=== PATIENT | male | born 1995 | race Caucasian/White ===

== ENCOUNTER 2018-01-22 23:12 | Inpatient (IN) ==
[2018-01-22] MEDS ORDERED: fentaNYL Citrate Inj 100 MCG/2 ML Ampul ONE ×2 (23:20→23:26)
[2018-01-22] MEDS ORDERED: Propofol 1000 mg/100 ml Inj 1,000 MG/100 ML BOTTLE ONE (23:20)
[2018-01-22 23:36] LABS: Baso # (Auto) 0.1 th/mm3 (0.0-0.2); Baso % (Auto) 0.3 % (0.0-2.0); Eos # (Auto) 0.6 th/mm3 (0.0-0.4); Eos % (Auto) 2.1 % (0.0-4.0); Hematocrit 50.7 % (39.0-51.0); Hemoglobin 17.3 gm/dL (13.0-17.0); Lymph # (Auto) 5.3 th/mm3 (1.0-4.8); Lymph % (Auto) 18.8 % (9.0-44.0); Mean Corpuscular HGB Conc 34.2 % (32.0-36.0); Mean Corpuscular Hemoglobin 30.5 pg (27.0-34.0); Mean Corpuscular Volume 89.3 fL (80.0-100.0); Mean Platelet Volume 9.4 fL (7.0-11.0); Mono # (Auto) 2.3 th/mm3 (0.0-0.9); Mono % (Auto) 8.2 % (0.0-8.0); Neut # (Auto) 19.7 th/mm3 (1.8-7.7); Neut % (Auto) 70.6 % (16.0-70.0); Platelet Count 275 th/mm3 (150-450); Red Blood Count 5.68 mil/mm3 (4.50-5.90); White Blood Count 27.9 th/mm3 (4.0-11.0)
[2018-01-22 23:50] LABS: Anion Gap 14 meq/L (5-15); Blood Urea Nitrogen 14 mg/dL (7-18); Carbon Dioxide 16.5 meq/L (21.0-32.0); Chloride 111 meq/L (98-107); Glomerular Filtration Rate 46 mL/min (>89); Glucose,Random 201 mg/dL (74-106); Potassium 3.7 meq/L (3.5-5.1); Sodium 141 meq/L (136-145)
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
[2018-01-22 23:55] LABS: INR 1.1 Ratio; Prothrombin Time 10.8 sec (9.8-11.6)
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
[2018-01-23] MEDS ORDERED: Esmolol Bolus Inj 100 MG/10 ML Vial IV.PUSH ONE (00:01)
--- NOTE | 2018-01-23 00:03 | ED ---
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 Discharge Assessment Last Done: 01/23/18 00:30 Status ED Status: Left Department Discharge Information Discharge Date/Time: 01/23/18 00:31
[2018-01-23 00:06] LABS: Eosinophils 2 % (0-4); Lymphocytes 25 % (9-44); Monocytes 9 % (0-8)
[2018-01-23 00:07] LABS: Platelet Estimate Normal (Normal); Platelet Morphology Normal (Normal); Tear Drop Cells 1+
[2018-01-23] MEDS ORDERED: Midazolam Inj 5 MG/ML 1 ML Vial ONE (00:07)
[2018-01-23 00:08] LABS: Spherocytes Occ
[2018-01-23] MEDS ORDERED: fentaNYL Citrate Inj 100 MCG/2 ML Ampul ONE ×3 (00:08→10:39)
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
[2018-01-23 00:36] LABS: ABG PCO2 43 mmHg (38-42); ABG PO2 342 mmHg (61-120)
[2018-01-23] MEDS ORDERED: Magnesium Sulfate Inj 2 GM in Sodium Chlor 0.9% Inj 96 ML IV.SIG PRN (00:39)
[2018-01-23] MEDS ORDERED: Magnesium Oxide 400 MG Tablet PO PRN (00:39)
[2018-01-23] MEDS ORDERED: Potassium Chloride 25 MEQ Effervescent Tablet PO PRN (00:39)
[2018-01-23] MEDS ORDERED: Magnesium Sulfate Inj 4 GM in Sodium Chlor 0.9% Inj 92 ML IV.SIG PRN (00:39)
[2018-01-23] MEDS ORDERED: Potassium Phosphate 500 MG Soluble Tablet PO PRN ×2 (00:39)
[2018-01-23] MEDS ORDERED: Potassium Chlor 40 mEq Premix 40 MEQ/100 ML PIGGYBACK IV.SIG PRN ×2 (00:39)
[2018-01-23] MEDS ORDERED: Potassium Chlor 20 mEq Premix 20 MEQ/100 ML PIGGYBACK IV.SIG PRN (00:39)
[2018-01-23] MEDS ORDERED: Sodium Phosphate Inj 30 MMOL in Sodium Chlor 0.9% Inj 250 ML IV.SIG PRN (00:39)
[2018-01-23] MEDS ORDERED: Potassium Phosphate Inj 30 MMOL in Sodium Chlor 0.9% Inj 250 ML IV.SIG PRN (00:39)
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
[2018-01-23] MEDS ORDERED: Heparin - SQ 10,000 UNITS/ML Vial ONE ×2 (01:07→11:21)
[2018-01-23] MEDS ORDERED: Sodium Bicarbonate 8.4% Inj 50 MEQ/50 ML Syringe IV.CONT ONE (01:16)
[2018-01-23] MEDS ORDERED: Electrolytes R/Dextrose 5% Inj 1,000 ML IV.CONT ONE (01:16)
[2018-01-23] MEDS ORDERED: Propofol Inj 500 MG/50 ML Vial ONE ×2 (01:51→11:18)
[2018-01-23 02:25] LABS: ABG Base Excess -9.8 mmol/L (-2-2); ABG PCO2 35 mmHg (38-42); ABG PO2 209 mmHG (61-120)
[2018-01-23] MEDS ORDERED: Sodium Bicarbonate 8.4% Inj 50 MEQ/50 ML Syringe ONE (02:28)
[2018-01-23] MEDS ORDERED: Albumin Human 5% Inj 500 ML IV.SIG ONE (03:08)
[2018-01-23] MEDS ORDERED: Sod Chloride 0.9% Inj 1,000 ML IV.SIG SCH (03:15)
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
[2018-01-23] MEDS ORDERED: Chlorhexidine Gluconate 2% 1 Pack (2 Cloths) TOPICAL PRN (04:00)
[2018-01-23] MEDS ORDERED: fentaNYL 10 mcg/mL Premix Drip 2,500 MCG/250 ML BAG IV.SIG PRN (04:18)
[2018-01-23 04:27] LABS: ABG Base Excess -5.4 mmol/L (-2-2); ABG PCO2 39 mmHg (38-42); ABG PO2 163 mmHg (61-120)
[2018-01-23 04:42] LABS: Baso % (Auto) 0.1 % (0.0-2.0); Eos % (Auto) 0.2 % (0.0-4.0); Hematocrit 42.8 % (39.0-51.0); Hemoglobin 14.3 gm/dL (13.0-17.0); Lymph # (Auto) 1.7 th/mm3 (1.0-4.8); Lymph % (Auto) 6.3 % (9.0-44.0); Mean Corpuscular HGB Conc 33.3 % (32.0-36.0); Mean Corpuscular Hemoglobin 30.1 pg (27.0-34.0); Mean Corpuscular Volume 90.5 fL (80.0-100.0); Mean Platelet Volume 9.4 fL (7.0-11.0); Mono # (Auto) 3.7 th/mm3 (0.0-0.9); Mono % (Auto) 13.8 % (0.0-8.0); Neut # (Auto) 21.4 th/mm3 (1.8-7.7); Neut % (Auto) 79.6 % (16.0-70.0); Platelet Count 208 th/mm3 (150-450); Red Blood Count 4.73 mil/mm3 (4.50-5.90); White Blood Count 26.9 th/mm3 (4.0-11.0)
[2018-01-23] MEDS: ceFAZolin 2 GM Premix Inj 2 GM/50 ML PIGGYBACK IV.SIG SCH ×3 (04:51→13:18)
[2018-01-23 04:54] LABS: INR 1.1 Ratio; Prothrombin Time 11.4 sec (9.8-11.6)
[2018-01-23 05:07] LABS: Calcium 7.2 mg/dL (8.5-10.1); Carbon Dioxide 20.8 meq/L (21.0-32.0); Potassium 4.7 meq/L (3.5-5.1)
[2018-01-23 05:24] LABS: Total Protein 5.5 g/dL (6.4-8.2)
[2018-01-23 05:48] LABS: Eosinophils 1 % (0-4); Lymphocytes 7 % (9-44); Metamyelocytes 1 % (0-1); Monocytes 10 % (0-8); Platelet Estimate Normal (Normal); Platelet Morphology Normal (Normal); Spherocytes 1+
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
[2018-01-23] MEDS: Chlorhexidine Gluconate 2% 1 Pack (2 Cloths) TOPICAL SCH (06:30)
[2018-01-23] MEDS: Oral Hygiene Kit OROPHARYNG SCH ×3 (06:30→17:08)
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
[2018-01-23] MEDS: Esmolol 2,500 mg/250 mL Premix 2,500 MG/250 ML BAG IV.CONT PRN ×3 (06:54→18:10)
[2018-01-23] MEDS: Sod Chloride 0.9% Inj 1,000 ML IV.CONT SCH ×2 (07:57→10:04)
[2018-01-23] MEDS: Chlorhexidine 0.12% Oral Kit 15 ML UDC OROPHARYNG SCH ×2 (07:58→20:19)
[2018-01-23] MEDS: Propofol 1000 mg/100 ml Inj 1,000 MG/100 ML BOTTLE IV.CONT PRN ×5 (07:59→23:45)
[2018-01-23] MEDS ORDERED: Phenylephrine/NS 1000 MCG/10ML Syringe IV.PUSH ONE (08:00)
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
[2018-01-23] MEDS ORDERED: Famotidine 20 MG Tablet PO SCH (09:00)
[2018-01-23] MEDS ORDERED: Heparin 10,000 UNITS/10 ML Vial (for IV use) ONE ×2 (09:49→11:21)
[2018-01-23] MEDS ORDERED: Protamine Sulfate Inj 50 MG/5 ML Vial ONE (09:49)
[2018-01-23] MEDS ORDERED: Heparin/NS PF Inj 500 ML ONE (09:50)
[2018-01-23] MEDS ORDERED: Post-op Orders (for Pharmacy) OTHER STA (09:55)
--- NOTE | 2018-01-23 10:01 | P.OP ---
- Preoperative Diagnosis (1) Open fracture of shaft of left femur Date of procedure: 01/23/18 Procedure: Irrigation and debridement of left femur fracture, intramedullary nail fixation left femur Anesthesia: GETA Surgeon: Saurav Oh MD Stock Lifter: IVAN Garcia PA-C The surgical procedure was assisted by my physician paraprofessional education assistant. My P.A. presence was necessary throughout this case for the manipulation and positioning of the surgical extremity. My P.A. was assisting me throughout the duration of this procedure. The skill set of a physician paraprofessional education assistant was medically necessary to complete this procedure. During the surgical case the surgical services assistant was working at the back table and the physician paraprofessional education assistant was directly assisting me. Operation and Findings: Implants used: 11 mm x 380 mm Synthes femoral nail Plan of activity: 50% weightbearing Patient was seen and evaluated preoperatively. He is intubated and sedated in the intensive care unit.. The patient has significant hip pain from open femur shaft fracture. The risk and benefits of surgery were discussed in depth with the patients family to include bleeding, infection, nonunion, malunion, painful hardware, as well as medical competitions including blood clots, stroke , heart attack, and . Informed consent was obtained. Operative site was marked. Patient was brought to the operating room and placed on fracture table. IV sedation was administered by anesthesiologist. Timeout procedure was performed. Hip and leg were prepped with alcohol followed by DuraPrep and draped in the usual sterile fashion. IV antibiotics were given prior to incision. Procedure began with irrigation and debridement of the fracture. The traumatic laceration was extended proximally and distally. The fracture was exposed. Vastus lateralis was elevated. Curettes were used to debride bone. Overall the wound appeared to be clean. 3 L of sterile saline was used to copiously irrigate soft tissue and bone. Next, attention was turned towards reduction of fracture. Traction was applied. The leg was manipulated to achieve reduction. Excellent reduction was achieved. Fluoroscopy was used to confirm reduction. A two inch incision was made proximal to the trochanter. Subcutaneous tissue was dissected bluntly. Guidepin was placed into the piriformis fossa and advanced into the femoral canal. Fluoroscopy confirmed appropriate guidepin placement. A opening reamer was placed over the guidepin. A long ball tipped guide pin was now placed down the femoral canal into the center of the distal femur. The nail length was now measured. Fluoroscopy confirmed appropriate guidepin placement. Flexible reamers were now passed over the guidepin to ream the intramedullary canal. The Synthes nail was attached to the insertion handle. Nail was now placed over the guidepin into the femoral canal. Fluoroscopy confirmed appropriate nail placement. Small incisions were made over the lateral thigh for the proximal interlocking screws. Cannulas were placed through the insertion handle down to the femur. The screw holes were predrilled and screw lengths were measured. Appropriate length screws were now placed. Traction was released and compression was applied. Next, using perfect havasupai technique two distal interlocking screws were placed. Screw holes were predrilled and screw lengths were measured. Final fluoroscopy revealed well aligned fracture with well-placed hardware. Incision was closed with 3-0 PDS and soniya. Sterile dressings were applied. Patient was awakened and transferred to recovery room.
--- NOTE | 2018-01-23 11:11 | XR ---
EXAM DATE: 01/23/2018 11:05 AM EDT AGE/SEX: 89 years / Male INDICATIONS: ORIF left femur fracture. CLINICAL DATA: This is the patient's subsequent encounter. Patient reports that signs and symptoms h ave been present for 2 days and indicates a pain score of Nonresponsive. MEDICAL/SURGICAL HISTORY: Non-responsive. Non-responsive. COMPARISON: [facility] [place], [place] FEMUR LEFT W CONTRAST, 01/22/2018. . FINDINGS: A medullary sari fixation screws have been placed in the left femur status post ORIF. The femur is wel l aligned. CONCLUSION: Status post ORIF of left mid femur fracture with hardware in good position. Electronically signed by: Derrick Morrell MD 01/23/2018 11:10 AM EDT
[2018-01-23] MEDS ORDERED: Iohexol 300 MG/ML 50 ML Vial (for Rad Diag) IVCONTRAST ONE (11:28)
--- NOTE | 2018-01-23 11:55 | P.OP ---
- Preoperative Diagnosis (1) Aortic transection - Postoperative Diagnosis (1) Aortic transection Date of procedure: 01/23/18 Procedure: 1. TEVAR involving L SCA 2. IVUS 3. R WELT SEWER Perclose 4. L WELT SEWER Angioseal Implants: 1. Valiant TEVAR ([id number]) 2. L WELT SEWER Angioseal Anesthesia: GETA Surgeon: Derrick Montes De Oca MD Estimated blood loss (mL): 50 IV fluids (mL): 1,300 Urine output (mL): 200 Pathology: none sent Operation and Findings: successful TEVAR with intentional coverage of L SCA + Doppler signals B LE after TEVAR
--- NOTE | 2018-01-23 13:37 | XR ---
EXAM DATE: 01/23/2018 1:25 PM EDT AGE/SEX: 89 years / Male INDICATIONS: Evaluate lung status. Possible aneurysm. CLINICAL DATA: This is the patient's subsequent encounter. Patient reports that signs and symptoms h ave been present for 2 days and indicates a pain score of Nonresponsive. MEDICAL/SURGICAL HISTORY: Non-responsive. Non-responsive. COMPARISON: [facility] [place], CT CHEST W CONTRAST, 01/22/2018. . FINDINGS: The cardiac silhouette is normal in transverse diameter. Support lines and tubes are in satisfactory position. Aortic stent graft is present. There is left lower lobe atelectasis versus pneumonia. A sma ll left sided effusion is present. There is no evidence of pneumothorax. CONCLUSION: Left lower lobe atelectasis versus pneumonia with small left effusion Electronically signed by: Kishor Soler MD 01/23/2018 1:36 PM EDT
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
[2018-01-23] MEDS: Famotidine PF Inj 20 MG/2 ML Vial IV.PUSH SCH ×2 (13:54→20:18)
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
[2018-01-23 16:28] LABS: Baso % (Auto) 0.3 % (0.0-2.0); Eos # (Auto) 0.1 th/mm3 (0.0-0.4); Eos % (Auto) 0.6 % (0.0-4.0); Hematocrit 34.3 % (39.0-51.0); Hemoglobin 11.2 gm/dL (13.0-17.0); Lymph % (Auto) 12.3 % (9.0-44.0); Mean Corpuscular HGB Conc 32.7 % (32.0-36.0); Mean Corpuscular Volume 91.6 fL (80.0-100.0); Mean Platelet Volume 9.3 fL (7.0-11.0); Mono # (Auto) 2.3 th/mm3 (0.0-0.9); Mono % (Auto) 14.7 % (0.0-8.0); Neut # (Auto) 11.5 th/mm3 (1.8-7.7); Neut % (Auto) 72.1 % (16.0-70.0); Platelet Count 150 th/mm3 (150-450); Red Blood Count 3.74 mil/mm3 (4.50-5.90); Red Cell Distribution Width 13.4 % (11.6-17.2); White Blood Count 15.9 th/mm3 (4.0-11.0)
[2018-01-23 17:07] LABS: Calcium 6.6 mg/dL (8.5-10.1); Potassium 4.1 meq/L (3.5-5.1)
[2018-01-23] MEDS: Metoprolol Inj 5 MG/5 ML Vial IV.PUSH SCH ×2 (17:07→22:12)
[2018-01-23] MEDS: ceFAZolin Inj 2,000 MG in Sodium Chlor 0.9% Inj 80 ML IV.SIG SCH (17:10)
[2018-01-23 17:23] LABS: ABG Base Excess -2.7 mmol/L (-2-2); ABG PCO2 47 mmHg (38-42); ABG PO2 93 mmHg (61-120)
[2018-01-23 17:32] LABS: Total Protein 4.9 g/dL (6.4-8.2)
[2018-01-23 17:56] LABS: Lymphocytes 8 % (9-44); Metamyelocytes 4 % (0-1); Monocytes 2 % (0-8)
[2018-01-23 17:57] LABS: Platelet Morphology Normal (Normal)
[2018-01-23] MEDS: fentaNYL 10 mcg/mL Premix Drip 2,500 MCG/250 ML BAG IV.SIG PRN (18:35)
[2018-01-23 19:36] LABS: Bacteria,Urine Rare /hpf; Bilirubin,Urine Negative (Negative); Clarity,Urine Clear (Clear); Color,Urine Yellow (Yellw/Straw); Glucose,Urine (UA) Negative (Negative); Leukocyte Esterase,Urine Negative (Negative); Nitrite,Urine Negative (Negative); Specific Gravity,Urine 1.049 (1.002-1.035)
[2018-01-23 19:37] LABS: Amphetamine Screen,Urine Neg (Neg); Barbiturate Screen,Urine Neg (Neg); Cannabinoid Screen,Urine Pos (Neg); Cocaine Screen,Urine Neg (Neg)
[2018-01-23 19:56] LABS: Opiate Screen,Urine Neg (Neg)
[2018-01-23] MEDS: Gentamicin/NS 80 mg Premix 100 ML IV.SIG SCH (20:18)
[2018-01-24] MEDS: Oral Hygiene Kit OROPHARYNG SCH ×5 (00:20→16:57)
[2018-01-24] MEDS: ceFAZolin Inj 2,000 MG in Sodium Chlor 0.9% Inj 80 ML IV.SIG SCH ×2 (00:34→08:40)
[2018-01-24] MEDS: Metoprolol Inj 5 MG/5 ML Vial IV.PUSH SCH ×4 (03:34→21:43)
[2018-01-24] MEDS: Gentamicin/NS 80 mg Premix 100 ML IV.SIG SCH ×3 (03:34→20:19)
[2018-01-24] MEDS: Chlorhexidine Gluconate 2% 1 Pack (2 Cloths) TOPICAL SCH (03:34)
[2018-01-24] MEDS: Propofol 1000 mg/100 ml Inj 1,000 MG/100 ML BOTTLE IV.CONT PRN ×6 (03:35→23:42)
[2018-01-24 04:52] LABS: Baso % (Auto) 0.2 % (0.0-2.0); Eos # (Auto) 0.2 th/mm3 (0.0-0.4); Eos % (Auto) 1.2 % (0.0-4.0); Hematocrit 30.1 % (39.0-51.0); Hemoglobin 10.3 gm/dL (13.0-17.0); Lymph # (Auto) 1.8 th/mm3 (1.0-4.8); Lymph % (Auto) 11.8 % (9.0-44.0); Mean Corpuscular HGB Conc 34.3 % (32.0-36.0); Mean Corpuscular Hemoglobin 30.6 pg (27.0-34.0); Mean Platelet Volume 9.1 fL (7.0-11.0); Mono # (Auto) 1.9 th/mm3 (0.0-0.9); Mono % (Auto) 12.7 % (0.0-8.0); Neut # (Auto) 11.2 th/mm3 (1.8-7.7); Neut % (Auto) 74.1 % (16.0-70.0); Platelet Count 114 th/mm3 (150-450); Red Blood Count 3.38 mil/mm3 (4.50-5.90); Red Cell Distribution Width 13.4 % (11.6-17.2); White Blood Count 15.1 th/mm3 (4.0-11.0)
[2018-01-24 05:27] LABS: Alanine Aminotransferase 44 U/L (12-78); Albumin 2.4 g/dL (3.4-5.0); Alkaline Phosphatase 58 U/L (45-117); Anion Gap 7 meq/L (5-15); Aspartate Aminotransferase 153 U/L (15-37); Blood Urea Nitrogen 12 mg/dL (7-18); Calcium 6.7 mg/dL (8.5-10.1); Carbon Dioxide 25.6 meq/L (21.0-32.0); Chloride 112 meq/L (98-107); Glomerular Filtration Rate Greater Than 89 mL/min (>89); Glucose,Random 129 mg/dL (74-106); Sodium 145 meq/L (136-145); Total Protein 4.9 g/dL (6.4-8.2)
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
[2018-01-24 06:05] LABS: ABG PCO2 43 mmHg (38-42); ABG PO2 112 mmHg (61-120)
--- NOTE | 2018-01-24 06:59 | P.PNOP ---
Subjective Interval history: POD 1 s/p IMN left femur intubated/sedated Physical Exam Vital signs: Vital Signs 01/23/18 08:21 01/23/18 08:46 01/23/18 13:56 Temperature 99.7 F H Pulse Rate 82 92 H Respiratory Rate 16 16 Blood Pressure 150/56 H Pulse Oximetry 100 100 100 01/23/18 15:56 01/23/18 16:00 01/23/18 16:51 Temperature 100.8 F H 100.8 F H Pulse Rate 92 H 92 H 97 H Respiratory Rate 16 16 16 Blood Pressure 142/54 H 142/54 H Pulse Oximetry 100 100 99 01/23/18 17:56 01/23/18 20:00 01/23/18 20:17 Temperature 100.8 F H 100.6 F H Pulse Rate 98 H 97 H 97 H Respiratory Rate 16 16 17 Blood Pressure 124/54 L 127/57 L Pulse Oximetry 98 99 98 01/24/18 00:00 01/24/18 01:26 01/24/18 04:00 Temperature 100.2 F H 100.9 F H Pulse Rate 96 H 95 H Respiratory Rate 16 16 16 Blood Pressure 136/66 136/48 L Pulse Oximetry 98 98 99 01/24/18 05:01 Temperature Pulse Rate 101 H Respiratory Rate 16 Blood Pressure Pulse Oximetry 98 Intake & Output 01/23/18 01/23/18 01/24/18 06:59 18:59 06:59 Intake Total 2400 / 2400 3950 / 3950 2600 / 2600 Output Total 790 / 790 1350 / 1350 1400 / 1400 Balance 1610 / 1610 2600 / 2600 1200 / 1200 Weight 122.7 kg 132.7 kg Intake: IV 2650 / 2650 2600 / 2600 Brevibloc 2,500 mg/NS 250 mL 500 / 500 Premix 2,500 mg In 250 ml @ 50 MCG/KG/MIN 36.81 mls/hr IV.CONT TITRATE PRN Rx#:[id number] Diprivan 1000 mg/100 ml Inj 1, 200 / 200 300 / 300 000 mg In 100 ml @ 5 MCG/KG/MIN 3.681 mls/hr IV.CONT TITRATE PRN Rx#:[id number] Alburx 5% Inj 500 ML @ 250 mls/ 500 / 500 hr IV.SIG ONCE ONE Rx#:[id number] Gentamicin/NS 80 mg Premix 100 200 / 200 ML @ 200 mls/hr IV.SIG Q8H [facility] Rx#:[id number] LR 1000 mL Inj 1,000 ML @ 125 1000 / 1000 2000 / 2000 mls/hr IV.SIG .Q8H [facility] Rx#: [id number] Ancef 2 GM Premix Inj 2 gm In 100 / 100 50 ml @ 100 mls/hr IV.SIG Q8H [facility] Rx#:[id number] Ancef Inj 2,000 MG In NS Inj 80 100 / 100 100 / 100 ML @ 200 mls/hr IV.SIG Q8H [facility] Rx#:[id number] Anesthesia Amount 2400 / 2400 1300 / 1300 Output: Estimated Blood Loss 200 / 200 125 / 125 Urine Amount (Catheter) 430 / 430 800 / 800 550 / 550 Indwelling Urethral Catheter 430 / 430 800 / 800 550 / 550 Gastric Drainage 250 / 250 Orogastric Tube 250 / 250 Wound Vac Amount 160 / 160 425 / 425 600 / 600 Abdomen 160 / 160 425 / 425 600 / 600 Other: Mode Setting Abdomen Continuous Continuous Continuous # Bowel Movements 0 Weight On Admission 122.7 kg Narrative: LLE: dressings clean and dry. inact. compartments soft. - Urinary Catheter Management Indwelling Urethral Catheter Cath placed during this visit: no Results - Labs CBC & Chem 7: 01/24/18 04:36 01/24/18 04:36 Laboratory Results - last 24 hr 01/22/18 01/23/18 01/23/18 23:18 15:46 15:46 WBC 15.9 H RBC 3.74 L Hgb 11.2 L D Hct 34.3 L MCV 91.6 MCH 30.0 MCHC 32.7 RDW 13.4 Plt Count 150 MPV 9.3 Prelim Diff (Auto) Slide review pending Neut % (Auto) 72.1 H Lymph % (Auto) 12.3 [place] % (Auto) 14.7 H Eos % (Auto) 0.6 Baso % (Auto) 0.3 Neut # (Auto) 11.5 H Lymph # (Auto) 2.0 [place] # (Auto) 2.3 H Eos # (Auto) 0.1 Baso # (Auto) 0.0 WBC Differential Manual diff final Seg Neuts % (Manual) 76 H Band Neuts % (Manual) 10 H Lymphocytes % (Manual) 8 L Monocytes % (Manual) 2 Metamyelocytes % (Man) 4 H Abs Neuts (Manual) 14.3 H Differential Comment . Platelet Estimate Low L Platelet Morphology Normal Puncture Site Patient Temperature O2 Saturation ABG pH ABG pCO2 ABG pO2 ABG HCO3 ABG O2 Content ABG Base Excess ABG Methemoglobin Hemoglobin Carboxyhemoglobin O2 Delivery Device Vent Setting Inspired O2 Critical Value Sodium 143 Potassium 4.1 Chloride 112 H Carbon Dioxide 25.0 Anion Gap 6 BUN 15 Creatinine 1.00 Estimated GFR 64 L Random Glucose 124 H Calcium 6.6 L* Prot Corrected Calcium 7.7 L Total Bilirubin AST ALT Alkaline Phosphatase Total Protein 4.9 L D Albumin Urine Color Urine Clarity Urine pH Ur Specific [place] Urine Protein Urine Glucose (UA) Urine Ketones Urine Occult Blood Urine Nitrate Urine Bilirubin Urine Urobilinogen Ur Leukocyte Esterase Urine RBC Urine WBC Urine Bacteria Micro UA Comment Ur Microscopic Review Urine Culture Comments Urine Opiates Screen Ur Barbiturates Screen Ur Amphetamines Screen U Benzodiazepines Scrn Urine Cocaine Screen U Cannabinoids Screen MTS Gel Crossmatch See Detail 01/23/18 01/23/18 01/23/18 17:13 18:27 18:27 WBC RBC Hgb Hct MCV MCH MCHC RDW Plt Count MPV Prelim Diff (Auto) Neut % (Auto) Lymph % (Auto) [place] % (Auto) Eos % (Auto) Baso % (Auto) Neut # (Auto) Lymph # (Auto) [place] # (Auto) Eos # (Auto) Baso # (Auto) WBC Differential Seg Neuts % (Manual) Band Neuts % (Manual) Lymphocytes % (Manual) Monocytes % (Manual) Metamyelocytes % (Man) Abs Neuts (Manual) Differential Comment Platelet Estimate Platelet Morphology Puncture Site Art line Patient Temperature 98.6 O2 Saturation 95 ABG pH 7.31 L ABG pCO2 47 H ABG pO2 93 ABG HCO3 23 ABG O2 Content 14.9 ABG Base Excess -2.7 L ABG Methemoglobin 1.3 Hemoglobin 11.0 L Carboxyhemoglobin 1.2 O2 Delivery Device Ventilator Vent Setting Prvc/ac Inspired O2 40 Critical Value No Sodium Potassium Chloride Carbon Dioxide Anion Gap BUN Creatinine Estimated GFR Random Glucose Calcium Prot Corrected Calcium Total Bilirubin AST ALT Alkaline Phosphatase Total Protein Albumin Urine Color Yellow Urine Clarity Clear Urine pH 5.0 Ur Specific [place] 1.049 H Urine Protein 30 H Urine Glucose (UA) Negative Urine Ketones Negative Urine Occult Blood Negative Urine Nitrate Negative Urine Bilirubin Negative Urine Urobilinogen Less than 2 Ur Leukocyte Esterase Negative Urine RBC 7 H Urine WBC 1 Urine Bacteria Rare H Micro UA Comment Cath-culture ind Ur Microscopic Review Not Reportable Urine Culture Comments Cath-cult indicated Urine Opiates Screen Neg Ur Barbiturates Screen Neg Ur Amphetamines Screen Neg U Benzodiazepines Scrn Pos H Urine Cocaine Screen Neg U Cannabinoids Screen Pos H MTS Gel Crossmatch 01/24/18 01/24/18 01/24/18 04:36 04:36 05:53 WBC 15.1 H RBC 3.38 L Hgb 10.3 L Hct 30.1 L MCV 89.0 MCH 30.6 MCHC 34.3 RDW 13.4 Plt Count 114 L MPV 9.1 Prelim Diff (Auto) Neut % (Auto) 74.1 H Lymph % (Auto) 11.8 [place] % (Auto) 12.7 H Eos % (Auto) 1.2 Baso % (Auto) 0.2 Neut # (Auto) 11.2 H Lymph # (Auto) 1.8 [place] # (Auto) 1.9 H Eos # (Auto) 0.2 Baso # (Auto) 0.0 WBC Differential . Seg Neuts % (Manual) Band Neuts % (Manual) Lymphocytes % (Manual) Monocytes % (Manual) Metamyelocytes % (Man) Abs Neuts (Manual) Differential Comment Auto diff final Platelet Estimate Platelet Morphology Puncture Site Art line Patient Temperature 98.6 O2 Saturation 96 ABG pH 7.31 L ABG pCO2 43 H ABG pO2 112 ABG HCO3 21 L ABG O2 Content 13.2 ABG Base Excess -4.0 L ABG Methemoglobin 1.4 Hemoglobin 9.6 L Carboxyhemoglobin 1.3 O2 Delivery Device Ventilator Vent Setting Prvc/ac 16, vt 600, Inspired O2 40 Critical Value No Sodium 145 Potassium 4.0 Chloride 112 H Carbon Dioxide 25.6 Anion Gap 7 BUN 12 Creatinine 0.97 Estimated GFR Greater than 89 Random Glucose 129 H Calcium 6.7 L* Prot Corrected Calcium 7.8 L Total Bilirubin 0.4 AST 153 H ALT 44 Alkaline Phosphatase 58 Total Protein 4.9 L Albumin 2.4 L Urine Color Urine Clarity Urine pH Ur Specific [place] Urine Protein Urine Glucose (UA) Urine Ketones Urine Occult Blood Urine Nitrate Urine Bilirubin Urine Urobilinogen Ur Leukocyte Esterase Urine RBC Urine WBC Urine Bacteria Micro UA Comment Ur Microscopic Review Urine Culture Comments Urine Opiates Screen Ur Barbiturates Screen Ur Amphetamines Screen U Benzodiazepines Scrn Urine Cocaine Screen U Cannabinoids Screen MTS Gel Crossmatch - Imaging Impressions Chest X-Ray 01/23/18 00:00 CONCLUSION: Left lower lobe atelectasis versus pneumonia with small left effusion Femur X-Ray 01/23/18 00:00 CONCLUSION: Status post ORIF of left mid femur fracture with hardware in good position. Chest X-Ray 01/24/18 00:00 CONCLUSION: Stable chest appearance. Assessment and Plan - Assessment and Plan 1) Left Femoral Shaft Fx s/p IMN - POD 1 -50%WB -dailiy dressing changes POD 2 -DVT prophylaxis -medical mgmt -ortho surgeries complete -f/u wtmadhu Santamaria or CRISTIANO in 2 weeks [employer] Prescription Drug Monitoring Database has been queried and verified prior to prescribing the controlled subsection. Patient is having significant pain caused by [] which will last more than 3 days. Trial of alternative treatment options other than prescribed opioids has not helped. I believe that it is medically necessary to treat the patients pain because it is affecting patients ability to [].
[2018-01-24] MEDS: Esmolol 2,500 mg/250 mL Premix 2,500 MG/250 ML BAG IV.CONT PRN (08:35)
[2018-01-24] MEDS: fentaNYL 10 mcg/mL Premix Drip 2,500 MCG/250 ML BAG IV.SIG PRN ×2 (08:39→22:40)
[2018-01-24] MEDS: Chlorhexidine 0.12% Oral Kit 15 ML UDC OROPHARYNG SCH ×2 (08:40→21:41)
[2018-01-24] MEDS: Famotidine PF Inj 20 MG/2 ML Vial IV.PUSH SCH ×2 (08:41→20:19)
--- NOTE | 2018-01-24 09:07 | P.PNVS ---
Subjective Post Op Day #: 1 Procedure: TEVAR Subjective/Hospital Course: sedated, intubated, still with open abd per report, INTERIANO with lightened sedation Objective Vital Signs / I&O: Vital Signs 01/23/18 13:56 01/23/18 15:56 01/23/18 16:00 Temperature 99.7 F H 100.8 F H 100.8 F H Pulse Rate 92 H 92 H 92 H Respiratory Rate 16 16 16 Blood Pressure 150/56 H 142/54 H 142/54 H Pulse Oximetry 100 100 100 01/23/18 16:51 01/23/18 17:56 01/23/18 20:00 Temperature 100.8 F H 100.6 F H Pulse Rate 97 H 98 H 97 H Respiratory Rate 16 16 16 Blood Pressure 124/54 L 127/57 L Pulse Oximetry 99 98 99 01/23/18 20:17 01/24/18 00:00 01/24/18 01:26 Temperature 100.2 F H Pulse Rate 97 H 96 H Respiratory Rate 17 16 16 Blood Pressure 136/66 Pulse Oximetry 98 98 98 01/24/18 04:00 01/24/18 05:01 01/24/18 07:55 Temperature 100.9 F H Pulse Rate 95 H 101 H Respiratory Rate 16 16 16 Blood Pressure 136/48 L Pulse Oximetry 99 98 98 Intake & Output 01/23/18 01/24/18 01/24/18 18:59 06:59 18:59 Intake Total 3950 / 3950 2700 / 2700 500 / 500 Output Total 1350 / 1350 1400 / 1400 Balance 2600 / 2600 1300 / 1300 500 / 500 Weight 132.7 kg Intake: IV 2650 / 2650 2700 / 2700 500 / 500 Brevibloc 2,500 mg/NS 250 mL 500 / 500 250 / 250 Premix 2,500 mg In 250 ml @ 50 MCG/KG/MIN 36.81 mls/hr IV.CONT TITRATE PRN Rx#:[id number] Diprivan 1000 mg/100 ml Inj 1, 200 / 200 400 / 400 000 mg In 100 ml @ 5 MCG/KG/MIN 3.681 mls/hr IV.CONT TITRATE PRN Rx#:[id number] Alburx 5% Inj 500 ML @ 250 mls/ 500 / 500 hr IV.SIG ONCE ONE Rx#:[id number] Gentamicin/NS 80 mg Premix 100 200 / 200 ML @ 200 mls/hr IV.SIG Q8H [facility] Rx#:[id number] LR 1000 mL Inj 1,000 ML @ 125 1000 / 1000 2000 / 2000 mls/hr IV.SIG .Q8H [facility] Rx#: [id number] Ancef 2 GM Premix Inj 2 gm In 100 / 100 50 ml @ 100 mls/hr IV.SIG Q8H [facility] Rx#:[id number] Ancef Inj 2,000 MG In NS Inj 80 100 / 100 100 / 100 ML @ 200 mls/hr IV.SIG Q8H [facility] Rx#:[id number] fentaNYL 10 mcg/mL Premix Drip 250 / 250 2,500 mcg In 250 ml @ 50 MCG/HR 5 mls/hr IV.SIG TITRATE PRN Rx #:[id number] Anesthesia Amount 1300 / 1300 Output: Estimated Blood Loss 125 / 125 Urine Amount (Catheter) 800 / 800 550 / 550 Indwelling Urethral Catheter 800 / 800 550 / 550 Gastric Drainage 250 / 250 Orogastric Tube 250 / 250 Wound Vac Amount 425 / 425 600 / 600 Abdomen 425 / 425 600 / 600 Other: Mode Setting Abdomen Continuous Continuous # Bowel Movements 0 Exam: resting, sedated B groin access sites ok palpable L PT and strong R pedal signals feet warm Laboratory Results - last 24 hr 01/22/18 01/23/18 01/23/18 23:18 15:46 15:46 WBC 15.9 H RBC 3.74 L Hgb 11.2 L D Hct 34.3 L MCV 91.6 MCH 30.0 MCHC 32.7 RDW 13.4 Plt Count 150 MPV 9.3 Prelim Diff (Auto) Slide review pending Neut % (Auto) 72.1 H Lymph % (Auto) 12.3 [place] % (Auto) 14.7 H Eos % (Auto) 0.6 Baso % (Auto) 0.3 Neut # (Auto) 11.5 H Lymph # (Auto) 2.0 [place] # (Auto) 2.3 H Eos # (Auto) 0.1 Baso # (Auto) 0.0 WBC Differential Manual diff final Seg Neuts % (Manual) 76 H Band Neuts % (Manual) 10 H Lymphocytes % (Manual) 8 L Monocytes % (Manual) 2 Metamyelocytes % (Man) 4 H Abs Neuts (Manual) 14.3 H Differential Comment . Platelet Estimate Low L Platelet Morphology Normal Puncture Site Patient Temperature O2 Saturation ABG pH ABG pCO2 ABG pO2 ABG HCO3 ABG O2 Content ABG Base Excess ABG Methemoglobin Hemoglobin Carboxyhemoglobin O2 Delivery Device Vent Setting Inspired O2 Critical Value Sodium 143 Potassium 4.1 Chloride 112 H Carbon Dioxide 25.0 Anion Gap 6 BUN 15 Creatinine 1.00 Estimated GFR 64 L Random Glucose 124 H Calcium 6.6 L* Prot Corrected Calcium 7.7 L Total Bilirubin AST ALT Alkaline Phosphatase Total Protein 4.9 L D Albumin Urine Color Urine Clarity Urine pH Ur Specific [place] Urine Protein Urine Glucose (UA) Urine Ketones Urine Occult Blood Urine Nitrate Urine Bilirubin Urine Urobilinogen Ur Leukocyte Esterase Urine RBC Urine WBC Urine Bacteria Micro UA Comment Ur Microscopic Review Urine Culture Comments Urine Opiates Screen Ur Barbiturates Screen Ur Amphetamines Screen U Benzodiazepines Scrn Urine Cocaine Screen U Cannabinoids Screen MTS Gel Crossmatch See Detail 01/23/18 01/23/18 01/23/18 17:13 18:27 18:27 WBC RBC Hgb Hct MCV MCH MCHC RDW Plt Count MPV Prelim Diff (Auto) Neut % (Auto) Lymph % (Auto) [place] % (Auto) Eos % (Auto) Baso % (Auto) Neut # (Auto) Lymph # (Auto) [place] # (Auto) Eos # (Auto) Baso # (Auto) WBC Differential Seg Neuts % (Manual) Band Neuts % (Manual) Lymphocytes % (Manual) Monocytes % (Manual) Metamyelocytes % (Man) Abs Neuts (Manual) Differential Comment Platelet Estimate Platelet Morphology Puncture Site Art line Patient Temperature 98.6 O2 Saturation 95 ABG pH 7.31 L ABG pCO2 47 H ABG pO2 93 ABG HCO3 23 ABG O2 Content 14.9 ABG Base Excess -2.7 L ABG Methemoglobin 1.3 Hemoglobin 11.0 L Carboxyhemoglobin 1.2 O2 Delivery Device Ventilator Vent Setting Prvc/ac Inspired O2 40 Critical Value No Sodium Potassium Chloride Carbon Dioxide Anion Gap BUN Creatinine Estimated GFR Random Glucose Calcium Prot Corrected Calcium Total Bilirubin AST ALT Alkaline Phosphatase Total Protein Albumin Urine Color Yellow Urine Clarity Clear Urine pH 5.0 Ur Specific [place] 1.049 H Urine Protein 30 H Urine Glucose (UA) Negative Urine Ketones Negative Urine Occult Blood Negative Urine Nitrate Negative Urine Bilirubin Negative Urine Urobilinogen Less than 2 Ur Leukocyte Esterase Negative Urine RBC 7 H Urine WBC 1 Urine Bacteria Rare H Micro UA Comment Cath-culture ind Ur Microscopic Review Not Reportable Urine Culture Comments Cath-cult indicated Urine Opiates Screen Neg Ur Barbiturates Screen Neg Ur Amphetamines Screen Neg U Benzodiazepines Scrn Pos H Urine Cocaine Screen Neg U Cannabinoids Screen Pos H MTS Gel Crossmatch 01/24/18 01/24/18 01/24/18 04:36 04:36 05:53 WBC 15.1 H RBC 3.38 L Hgb 10.3 L Hct 30.1 L MCV 89.0 MCH 30.6 MCHC 34.3 RDW 13.4 Plt Count 114 L MPV 9.1 Prelim Diff (Auto) Neut % (Auto) 74.1 H Lymph % (Auto) 11.8 [place] % (Auto) 12.7 H Eos % (Auto) 1.2 Baso % (Auto) 0.2 Neut # (Auto) 11.2 H Lymph # (Auto) 1.8 [place] # (Auto) 1.9 H Eos # (Auto) 0.2 Baso # (Auto) 0.0 WBC Differential . Seg Neuts % (Manual) Band Neuts % (Manual) Lymphocytes % (Manual) Monocytes % (Manual) Metamyelocytes % (Man) Abs Neuts (Manual) Differential Comment Auto diff final Platelet Estimate Platelet Morphology Puncture Site Art line Patient Temperature 98.6 O2 Saturation 96 ABG pH 7.31 L ABG pCO2 43 H ABG pO2 112 ABG HCO3 21 L ABG O2 Content 13.2 ABG Base Excess -4.0 L ABG Methemoglobin 1.4 Hemoglobin 9.6 L Carboxyhemoglobin 1.3 O2 Delivery Device Ventilator Vent Setting Prvc/ac 16, vt 600, Inspired O2 40 Critical Value No Sodium 145 Potassium 4.0 Chloride 112 H Carbon Dioxide 25.6 Anion Gap 7 BUN 12 Creatinine 0.97 Estimated GFR Greater than 89 Random Glucose 129 H Calcium 6.7 L* Prot Corrected Calcium 7.8 L Total Bilirubin 0.4 AST 153 H ALT 44 Alkaline Phosphatase 58 Total Protein 4.9 L Albumin 2.4 L Urine Color Urine Clarity Urine pH Ur Specific [place] Urine Protein Urine Glucose (UA) Urine Ketones Urine Occult Blood Urine Nitrate Urine Bilirubin Urine Urobilinogen Ur Leukocyte Esterase Urine RBC Urine WBC Urine Bacteria Micro UA Comment Ur Microscopic Review Urine Culture Comments Urine Opiates Screen Ur Barbiturates Screen Ur Amphetamines Screen U Benzodiazepines Scrn Urine Cocaine Screen U Cannabinoids Screen MTS Gel Crossmatch Assessment and Plan - Assessment (1) Aortic transection Code(s): S25.09XA - Other specified injury of thoracic aorta, initial encounter Status: Acute - Plan POD#1 s/p TEVAR for transection 1. HD stable 2. B LE perfused 3. Will need CTA in 1m which I will arrange 4. Continue to avoid L UE bp (will be falsely low). If he ultimately develops L UE claudication, will perform C-SC bypass 5. Continue pulse checks
[2018-01-24] MEDS: Enoxaparin Inj 30 MG/0.3 ML Syringe SQ SCH ×2 (10:34→22:37)
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
[2018-01-24] MEDS ORDERED: Phenylephrine/NS 1000 MCG/10ML Syringe IV.PUSH ONE (12:45)
[2018-01-24] MEDS ORDERED: Electrolytes R/Dextrose 5% Inj 1,000 ML IV.CONT ONE (12:45)
[2018-01-24 15:59] LABS: ABG PCO2 48 mmHg (38-42); ABG PO2 76 mmHg (61-120)
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
[2018-01-24] MEDS: Piperacil/Tazo 4.5 GM Premix 4.5 GM/100 ML BAG IV.SIG SCH ×2 (16:57→23:40)
[2018-01-25] MEDS: Oral Hygiene Kit OROPHARYNG SCH ×5 (00:10→23:33)
[2018-01-25] MEDS: Propofol 1000 mg/100 ml Inj 1,000 MG/100 ML BOTTLE IV.CONT PRN ×5 (03:25→23:34)
[2018-01-25] MEDS: Gentamicin/NS 80 mg Premix 100 ML IV.SIG SCH ×2 (04:01→11:10)
[2018-01-25] MEDS: Metoprolol Inj 5 MG/5 ML Vial IV.PUSH SCH ×4 (04:01→21:46)
[2018-01-25] MEDS: Chlorhexidine Gluconate 2% 1 Pack (2 Cloths) TOPICAL SCH (04:20)
[2018-01-25 05:46] LABS: ABG Base Excess -0.1 mmol/L (-2-2); ABG PCO2 45 mmHg (38-42); ABG PO2 83 mmHg (61-120)
[2018-01-25 05:49] LABS: Baso # (Auto) 0.1 th/mm3 (0.0-0.2); Baso % (Auto) 0.5 % (0.0-2.0); Eos # (Auto) 0.5 th/mm3 (0.0-0.4); Eos % (Auto) 4.7 % (0.0-4.0); Hematocrit 25.7 % (39.0-51.0); Hemoglobin 8.6 gm/dL (13.0-17.0); Lymph # (Auto) 1.5 th/mm3 (1.0-4.8); Lymph % (Auto) 13.1 % (9.0-44.0); Mean Corpuscular HGB Conc 33.6 % (32.0-36.0); Mean Corpuscular Hemoglobin 30.1 pg (27.0-34.0); Mean Corpuscular Volume 89.7 fL (80.0-100.0); Mean Platelet Volume 9.3 fL (7.0-11.0); Mono # (Auto) 1.2 th/mm3 (0.0-0.9); Mono % (Auto) 10.1 % (0.0-8.0); Neut # (Auto) 8.3 th/mm3 (1.8-7.7); Neut % (Auto) 71.6 % (16.0-70.0); Platelet Count 98 th/mm3 (150-450); Red Blood Count 2.86 mil/mm3 (4.50-5.90); Red Cell Distribution Width 12.9 % (11.6-17.2); White Blood Count 11.6 th/mm3 (4.0-11.0)
[2018-01-25 06:08] LABS: Anion Gap 8 meq/L (5-15); Blood Urea Nitrogen 11 mg/dL (7-18); Calcium 6.9 mg/dL (8.5-10.1); Carbon Dioxide 25.5 meq/L (21.0-32.0); Chloride 109 meq/L (98-107); Glomerular Filtration Rate Greater Than 89 mL/min (>89); Glucose,Random 125 mg/dL (74-106); Potassium 3.9 meq/L (3.5-5.1); Sodium 142 meq/L (136-145)
[2018-01-25 06:28] LABS: Total Protein 4.8 g/dL (6.4-8.2)
--- NOTE | 2018-01-25 07:52 | P.PNOP ---
Subjective Interval history: Intubated but stable Physical Exam Vital signs: Vital Signs 01/24/18 07:55 01/24/18 08:00 01/24/18 09:15 Temperature 101.5 F H Pulse Rate 99 H 103 H Respiratory Rate 16 16 16 Blood Pressure 134/48 L Pulse Oximetry 98 97 01/24/18 10:00 01/24/18 11:44 01/24/18 12:00 Temperature 101.5 F H Pulse Rate 114 H 114 H Respiratory Rate 16 16 Blood Pressure 136/42 L Pulse Oximetry 96 96 01/24/18 15:00 01/24/18 15:40 01/24/18 15:43 Temperature Pulse Rate 106 H Respiratory Rate 16 17 16 Blood Pressure Pulse Oximetry 94 L 97 01/24/18 16:00 01/24/18 18:00 01/24/18 20:00 Temperature 99.3 F 100.9 F H Pulse Rate 104 H 98 H 110 H Respiratory Rate 16 16 Blood Pressure 98/60 L 149/48 H Pulse Oximetry 94 L 94 L 01/24/18 20:35 01/24/18 21:12 01/24/18 21:14 Temperature Pulse Rate 115 H Respiratory Rate 16 16 16 Blood Pressure Pulse Oximetry 95 01/24/18 22:00 01/24/18 23:10 01/25/18 00:00 Temperature 100.0 F H Pulse Rate 115 H 100 H Respiratory Rate 16 16 Blood Pressure 142/53 H Pulse Oximetry 95 01/25/18 01:13 01/25/18 02:00 01/25/18 03:00 Temperature Pulse Rate 100 H 99 H Respiratory Rate 16 16 Blood Pressure Pulse Oximetry 95 01/25/18 04:00 01/25/18 04:15 01/25/18 04:24 Temperature 100.8 F H Pulse Rate 95 H Respiratory Rate 16 16 16 Blood Pressure 139/47 L Pulse Oximetry 94 L 94 L 01/25/18 06:00 01/25/18 07:26 Temperature Pulse Rate 95 H 117 H Respiratory Rate 16 Blood Pressure Pulse Oximetry 91 L Intake & Output 01/24/18 01/25/18 01/25/18 18:59 06:59 18:59 Intake Total 2700 / 2700 3235 / 3235 Output Total 980 / 980 1950 / 1950 Balance 1720 / 1720 1285 / 1285 Weight 130.5 kg Intake: IV 2100 / 2099 Brevibloc 2,500 mg/NS 250 mL 250 / 250 Premix 2,500 mg In 250 ml @ 50 MCG/KG/MIN 36.81 mls/hr IV.CONT TITRATE PRN Rx#:[id number] Diprivan 1000 mg/100 ml Inj 1, 200 / 200 285 / 285 000 mg In 100 ml @ 5 MCG/KG/MIN 3.681 mls/hr IV.CONT TITRATE PRN Rx#:[id number] Ofirmev Inj 1,000 mg In 100 ml 100 / 100 200 / 200 @ 400 mls/hr IV.SIG Q6H PRN Rx# :[id number] Gentamicin/NS 80 mg Premix 100 100 / 100 200 / 200 ML @ 200 mls/hr IV.SIG Q8H PEDRO Rx#:[id number] LR 1000 mL Inj 1,000 ML @ 125 1000 / 1000 1000 / 1000 mls/hr IV.SIG .Q8H PEDRO Rx#: [id number] Zosyn 4.5 GM Premix 4.5 gm In 100 / 100 100 / 100 100 ml @ 200 mls/hr IV.SIG Q8H PEDRO Rx#:[id number] Ancef Inj 2,000 MG In NS Inj 80 100 / 100 ML @ 200 mls/hr IV.SIG Q8H PEDRO Rx#:[id number] fentaNYL 10 mcg/mL Premix Drip 250 / 250 250 / 250 2,500 mcg In 250 ml @ 50 MCG/HR 5 mls/hr IV.SIG TITRATE PRN Rx #:[id number] Anesthesia Amount 600 / 600 1200 / 1200 Output: Estimated Blood Loss 100 / 100 200 / 200 Urine Amount (Catheter) 650 / 650 1320 / 1320 Indwelling Urethral Catheter 650 / 650 1320 / 1320 Gastric Drainage 150 / 150 250 / 250 Orogastric Tube 150 / 150 250 / 250 Wound Drainage 80 / 80 180 / 180 Left Abdomen DOMINIQUE Drain 80 / 80 180 / 180 Other: # Bowel Movements 0 0 Narrative: Left lower extremity: Clean dressings in place. Incisions healing well. Traumatic laceration is healing well with some slight darkening along the skin edges. Moderate swelling of the femur. No laxity at the knee or below the knee. Continues to have some bruising over his first toe. Intact distal pulses - Urinary Catheter Management Indwelling Urethral Catheter Cath placed during this visit: yes Reason for continuing: Hourly intake/output Insertion date: 01/23/18 Insertion time: 00:40 Results - Labs CBC & Chem 7: 01/25/18 05:30 01/25/18 05:30 Laboratory Results - last 24 hr 01/22/18 01/24/18 01/25/18 23:18 15:45 05:30 WBC 11.6 H RBC 2.86 L Hgb 8.6 L Hct 25.7 L MCV 89.7 MCH 30.1 MCHC 33.6 RDW 12.9 Plt Count 98 L MPV 9.3 Prelim Diff (Auto) Slide review pending Neut % (Auto) 71.6 H Lymph % (Auto) 13.1 [place] % (Auto) 10.1 H Eos % (Auto) 4.7 H Baso % (Auto) 0.5 Neut # (Auto) 8.3 H Lymph # (Auto) 1.5 [place] # (Auto) 1.2 H Eos # (Auto) 0.5 H Baso # (Auto) 0.1 Differential Comment . Puncture Site Art line Patient Temperature 98.6 O2 Saturation 93 ABG pH 7.32 L ABG pCO2 48 H ABG pO2 76 ABG HCO3 24 ABG O2 Content 12.3 ABG Base Excess -1.0 ABG Methemoglobin 1.3 Shola Test Present Hemoglobin 9.3 L Carboxyhemoglobin 1.8 O2 Delivery Device Ventilator Vent Setting Prvc/ac Inspired O2 40 Critical Value No Sodium Potassium Chloride Carbon Dioxide Anion Gap BUN Creatinine Estimated GFR Random Glucose Calcium Prot Corrected Calcium Total Protein MTS Gel Crossmatch See Detail 01/25/18 01/25/18 05:30 05:41 WBC RBC Hgb Hct MCV MCH MCHC RDW Plt Count MPV Prelim Diff (Auto) Neut % (Auto) Lymph % (Auto) [place] % (Auto) Eos % (Auto) Baso % (Auto) Neut # (Auto) Lymph # (Auto) [place] # (Auto) Eos # (Auto) Baso # (Auto) Differential Comment Puncture Site Beth Patient Temperature 98.6 O2 Saturation 95 ABG pH 7.36 L ABG pCO2 45 H ABG pO2 83 ABG HCO3 25 ABG O2 Content 11.5 L ABG Base Excess -0.1 ABG Methemoglobin 1.2 Shola Test Hemoglobin 8.5 L Carboxyhemoglobin 1.6 O2 Delivery Device Ventilator Vent Setting See comment Inspired O2 40 Critical Value No Sodium 142 Potassium 3.9 Chloride 109 H Carbon Dioxide 25.5 Anion Gap 8 BUN 11 Creatinine 1.00 Estimated GFR Greater than 89 Random Glucose 125 H Calcium 6.9 L* Prot Corrected Calcium 8.1 L Total Protein 4.8 L MTS Gel Crossmatch Microbiology 01/23/18 18:27 Catheterized Urine Urine Culture - Preliminary No growth in 24 hours Assessment and Plan - Assessment and Plan 1) Left Femoral Shaft Fx s/p IMN - POD 2 -50%WB -daily dressing changes beginning today -DVT prophylaxis -medical mgmt -X-ray left first toe -ortho surgeries complete -f/u wtih Rosalio or CRISTIANO in 2 weeks [employer] Prescription Drug Monitoring Database has been queried and verified prior to prescribing the controlled subsection. Patient is having significant pain caused by [] which will last more than 3 days. Trial of alternative treatment options other than prescribed opioids has not helped. I believe that it is medically necessary to treat the patients pain because it is affecting patients ability to [].
[2018-01-25] MEDS: Chlorhexidine 0.12% Oral Kit 15 ML UDC OROPHARYNG SCH ×2 (07:59→20:39)
[2018-01-25] MEDS: Piperacil/Tazo 4.5 GM Premix 4.5 GM/100 ML BAG IV.SIG SCH ×3 (07:59→23:33)
[2018-01-25] MEDS: Famotidine PF Inj 20 MG/2 ML Vial IV.PUSH SCH ×2 (08:00→20:40)
[2018-01-25 08:10] LABS: Platelet Morphology Normal (Normal)
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
[2018-01-25] MEDS: Enoxaparin Inj 30 MG/0.3 ML Syringe SQ SCH ×2 (09:59→23:33)
--- NOTE | 2018-01-25 10:42 | P.PNVS ---
Subjective Post Op Day #: 2 Procedure: TEVAR Subjective/Hospital Course: 22/M intubated and sedated Objective Vital Signs / I&O: Vital Signs 01/24/18 11:44 01/24/18 12:00 01/24/18 15:00 Temperature 101.5 F H Pulse Rate 114 H 106 H Respiratory Rate 16 16 16 Blood Pressure 136/42 L Pulse Oximetry 96 96 01/24/18 15:40 01/24/18 15:43 01/24/18 16:00 Temperature 99.3 F Pulse Rate 104 H Respiratory Rate 17 16 16 Blood Pressure 98/60 L Pulse Oximetry 94 L 97 94 L 01/24/18 18:00 01/24/18 20:00 01/24/18 20:35 Temperature 100.9 F H Pulse Rate 98 H 110 H Respiratory Rate 16 16 Blood Pressure 149/48 H Pulse Oximetry 94 L 01/24/18 21:12 01/24/18 21:14 01/24/18 22:00 Temperature Pulse Rate 115 H 115 H Respiratory Rate 16 16 Blood Pressure Pulse Oximetry 95 01/24/18 23:10 01/25/18 00:00 01/25/18 01:13 Temperature 100.0 F H Pulse Rate 100 H Respiratory Rate 16 16 16 Blood Pressure 142/53 H Pulse Oximetry 95 95 01/25/18 02:00 01/25/18 03:00 01/25/18 04:00 Temperature 100.8 F H Pulse Rate 100 H 99 H 95 H Respiratory Rate 16 16 Blood Pressure 139/47 L Pulse Oximetry 94 L 01/25/18 04:15 01/25/18 04:24 01/25/18 06:00 Temperature Pulse Rate 95 H Respiratory Rate 16 16 Blood Pressure Pulse Oximetry 94 L 01/25/18 07:26 01/25/18 08:00 Temperature 100.4 F H Pulse Rate 117 H 119 H Respiratory Rate 16 17 Blood Pressure 168/59 H Pulse Oximetry 91 L 94 L Intake & Output 01/24/18 01/25/18 01/25/18 18:59 06:59 18:59 Intake Total 2700 / 2700 3235 / 3235 1142 / 1142 Output Total 980 / 980 1950 / 1950 Balance 1720 / 1720 1285 / 1285 1142 / 1142 Weight 130.5 kg Intake: IV 2099 1142 / 1142 Brevibloc 2,500 mg/NS 250 mL 250 / 250 42 / 42 Premix 2,500 mg In 250 ml @ 50 MCG/KG/MIN 36.81 mls/hr IV.CONT TITRATE PRN Rx#:[id number] Diprivan 1000 mg/100 ml Inj 1, 200 / 200 285 / 285 000 mg In 100 ml @ 5 MCG/KG/MIN 3.681 mls/hr IV.CONT TITRATE PRN Rx#:[id number] Ofirmev Inj 1,000 mg In 100 ml 100 / 100 200 / 200 @ 400 mls/hr IV.SIG Q6H PRN Rx# :[id number] Gentamicin/NS 80 mg Premix 100 100 / 100 200 / 200 ML @ 200 mls/hr IV.SIG Q8H PEDRO Rx#:[id number] LR 1000 mL Inj 1,000 ML @ 125 1000 / 1000 1000 / 1000 1000 / 1000 mls/hr IV.SIG .Q8H PEDRO Rx#: [id number] Zosyn 4.5 GM Premix 4.5 gm In 100 / 100 100 / 100 100 / 100 100 ml @ 200 mls/hr IV.SIG Q8H PEDRO Rx#:[id number] Ancef Inj 2,000 MG In NS Inj 80 100 / 100 ML @ 200 mls/hr IV.SIG Q8H PEDRO Rx#:[id number] fentaNYL 10 mcg/mL Premix Drip 250 / 250 250 / 250 2,500 mcg In 250 ml @ 50 MCG/HR 5 mls/hr IV.SIG TITRATE PRN Rx #:[id number] Anesthesia Amount 600 / 600 1200 / 1200 Output: Estimated Blood Loss 100 / 100 200 / 200 Urine Amount (Catheter) 650 / 650 1320 / 1320 Indwelling Urethral Catheter 650 / 650 1320 / 1320 Gastric Drainage 150 / 150 250 / 250 Orogastric Tube 150 / 150 250 / 250 Wound Drainage 80 / 80 180 / 180 Left Abdomen DOMINIQUE Drain 80 / 80 180 / 180 Other: # Bowel Movements 0 0 Exam: Intubated and sedated B Groins soft w/o swelling or hematoma LE warm Palpable R PT Triphasic L DP/PT heard via Doppler NSR on Cm Resp CTA Laboratory Results - last 24 hr 01/22/18 01/24/18 01/25/18 23:18 15:45 05:30 WBC 11.6 H RBC 2.86 L Hgb 8.6 L Hct 25.7 L MCV 89.7 MCH 30.1 MCHC 33.6 RDW 12.9 Plt Count 98 L MPV 9.3 Prelim Diff (Auto) Slide review pending Neut % (Auto) 71.6 H Lymph % (Auto) 13.1 [place] % (Auto) 10.1 H Eos % (Auto) 4.7 H Baso % (Auto) 0.5 Neut # (Auto) 8.3 H Lymph # (Auto) 1.5 [place] # (Auto) 1.2 H Eos # (Auto) 0.5 H Baso # (Auto) 0.1 WBC Differential . Diff Scan Auto diff confirmed Differential Comment . Platelet Estimate Low L Platelet Morphology Normal Puncture Site Art line Patient Temperature 98.6 O2 Saturation 93 ABG pH 7.32 L ABG pCO2 48 H ABG pO2 76 ABG HCO3 24 ABG O2 Content 12.3 ABG Base Excess -1.0 ABG Methemoglobin 1.3 Shola Test Present Hemoglobin 9.3 L Carboxyhemoglobin 1.8 O2 Delivery Device Ventilator Vent Setting Prvc/ac Inspired O2 40 Critical Value No Sodium Potassium Chloride Carbon Dioxide Anion Gap BUN Creatinine Estimated GFR Random Glucose Calcium Prot Corrected Calcium Total Protein MTS Gel Crossmatch See Detail 01/25/18 01/25/18 05:30 05:41 WBC RBC Hgb Hct MCV MCH MCHC RDW Plt Count MPV Prelim Diff (Auto) Neut % (Auto) Lymph % (Auto) [place] % (Auto) Eos % (Auto) Baso % (Auto) Neut # (Auto) Lymph # (Auto) [place] # (Auto) Eos # (Auto) Baso # (Auto) WBC Differential Diff Scan Differential Comment Platelet Estimate Platelet Morphology Puncture Site Beth Patient Temperature 98.6 O2 Saturation 95 ABG pH 7.36 L ABG pCO2 45 H ABG pO2 83 ABG HCO3 25 ABG O2 Content 11.5 L ABG Base Excess -0.1 ABG Methemoglobin 1.2 Shola Test Hemoglobin 8.5 L Carboxyhemoglobin 1.6 O2 Delivery Device Ventilator Vent Setting See comment Inspired O2 40 Critical Value No Sodium 142 Potassium 3.9 Chloride 109 H Carbon Dioxide 25.5 Anion Gap 8 BUN 11 Creatinine 1.00 Estimated GFR Greater than 89 Random Glucose 125 H Calcium 6.9 L* Prot Corrected Calcium 8.1 L Total Protein 4.8 L MTS Gel Crossmatch Microbiology 01/23/18 18:27 Urine Culture - Preliminary Catheterized Urine No growth in 24 hours Assessment and Plan - Assessment (1) Aortic transection Code(s): S25.09XA - Other specified injury of thoracic aorta, initial encounter Status: Acute - Plan Pt s/p TEVAR for transection Pt continues to be hemodynamically stable Pt w/ sufficient B LE perfusion Plan Continue neurovascular checks Recommend avoiding LEFT upper extremity blood pressure readings as it will be falsely low Dahiana Aguilar NP [facility]/[employer] [phone]
[2018-01-25 14:31] LABS: Bilirubin,Urine Negative (Negative); Clarity,Urine Cloudy (Clear); Color,Urine Amber (Yellw/Straw); Glucose,Urine (UA) Negative (Negative); Hyaline Casts,Urine 12 /lpf (0-3); Leukocyte Esterase,Urine Negative (Negative); Mucus,Urine Few /lpf (Occasional); Nitrite,Urine Negative (Negative); Specific Gravity,Urine 1.026 (1.002-1.035); Squamous Epithelial Cell,Urine 2 /hpf (0-5)
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
[2018-01-25] MEDS: fentaNYL 10 mcg/mL Premix Drip 2,500 MCG/250 ML BAG IV.SIG PRN (17:35)
[2018-01-26] MEDS: Propofol 1000 mg/100 ml Inj 1,000 MG/100 ML BOTTLE IV.CONT PRN ×2 (02:57→06:19)
[2018-01-26] MEDS: Chlorhexidine Gluconate 2% 1 Pack (2 Cloths) TOPICAL SCH (03:04)
[2018-01-26] MEDS: Metoprolol Inj 5 MG/5 ML Vial IV.PUSH SCH ×4 (03:04→22:04)
[2018-01-26] MEDS: Oral Hygiene Kit OROPHARYNG SCH ×3 (03:05→16:50)
[2018-01-26 05:48] LABS: ABG Base Excess 3.2 mmol/L (-2-2); ABG PCO2 42 mmHg (38-42); ABG PO2 98 mmHg (61-120)
--- NOTE | 2018-01-26 06:06 | XR ---
EXAM DATE: 01/26/2018 5:03 AM EDT AGE/SEX: 22 years / Male INDICATIONS: Shortness of breath. CLINICAL DATA: This is the patient's subsequent encounter. Patient reports that signs and symptoms h ave been present for 4 - 6 days and indicates a pain score of Nonresponsive. MEDICAL/SURGICAL HISTORY: Non-responsive. Non-responsive. COMPARISON: [facility], CHEST 1V SINGLE AP, 01/24/2018. . FINDINGS: Endotracheal tube and nasogastric tube are again noted. Thoracic aortic endograft is again noted. Haz y bilateral pleural parenchymal opacity is present which is slightly worse than on prior exam. Accoun ting for rotation, cardiac contours are grossly stable. CONCLUSION: Worsening aeration Electronically signed by: Davon Reyes MD 01/26/2018 6:05 AM EDT
[2018-01-26 07:00] LABS: Baso % (Auto) 0.4 % (0.0-2.0); Eos # (Auto) 0.5 th/mm3 (0.0-0.4); Eos % (Auto) 4.1 % (0.0-4.0); Hematocrit 24.2 % (39.0-51.0); Hemoglobin 8.3 gm/dL (13.0-17.0); Lymph # (Auto) 1.5 th/mm3 (1.0-4.8); Lymph % (Auto) 12.3 % (9.0-44.0); Mean Corpuscular HGB Conc 34.2 % (32.0-36.0); Mean Corpuscular Hemoglobin 30.4 pg (27.0-34.0); Mean Corpuscular Volume 88.9 fL (80.0-100.0); Mean Platelet Volume 9.3 fL (7.0-11.0); Mono # (Auto) 1.3 th/mm3 (0.0-0.9); Mono % (Auto) 10.5 % (0.0-8.0); Neut # (Auto) 8.9 th/mm3 (1.8-7.7); Neut % (Auto) 72.7 % (16.0-70.0); Platelet Count 131 th/mm3 (150-450); Red Blood Count 2.72 mil/mm3 (4.50-5.90); Red Cell Distribution Width 13.2 % (11.6-17.2); White Blood Count 12.3 th/mm3 (4.0-11.0)
[2018-01-26 07:33] LABS: Anion Gap 7 meq/L (5-15); Blood Urea Nitrogen 15 mg/dL (7-18); Calcium 7.5 mg/dL (8.5-10.1); Carbon Dioxide 28.9 meq/L (21.0-32.0); Chloride 106 meq/L (98-107); Glomerular Filtration Rate Greater Than 89 mL/min (>89); Glucose,Random 122 mg/dL (74-106); Potassium 3.5 meq/L (3.5-5.1); Sodium 142 meq/L (136-145)
[2018-01-26] MEDS: Dexmedetomidine Inj 200 MCG in Sodium Chlor 0.9% Inj 48 ML IV.CONT PRN ×3 (08:06→17:35)
[2018-01-26] MEDS: Chlorhexidine 0.12% Oral Kit 15 ML UDC OROPHARYNG SCH ×2 (08:51→19:59)
[2018-01-26] MEDS: Famotidine PF Inj 20 MG/2 ML Vial IV.PUSH SCH ×2 (08:52→19:59)
[2018-01-26] MEDS ORDERED: Morphine Inj 4 MG/ML Vial IV.PUSH PRN (09:57)
--- NOTE | 2018-01-26 10:43 | P.PNOP ---
Subjective Interval history: POD 3 s/p IMN left femur intubated/sedated. no changes Physical Exam Vital signs: Vital Signs 01/25/18 12:00 01/25/18 13:55 01/25/18 15:49 Temperature 101.1 F H Pulse Rate 117 H Respiratory Rate 16 13 17 Blood Pressure 179/73 H Pulse Oximetry 96 92 L 01/25/18 16:00 01/25/18 16:18 01/25/18 18:22 Temperature 99.8 F H Pulse Rate 89 93 H Respiratory Rate 10 L 10 L 12 Blood Pressure 113/46 L Pulse Oximetry 98 98 01/25/18 19:51 01/25/18 19:55 01/25/18 20:00 Temperature 99.9 F H Pulse Rate 97 H 98 H Respiratory Rate 16 16 16 Blood Pressure 150/64 H Pulse Oximetry 98 96 01/25/18 22:00 01/25/18 23:36 01/26/18 00:00 Temperature 100.0 F H Pulse Rate 90 100 H Respiratory Rate 16 16 Blood Pressure 157/60 H Pulse Oximetry 98 97 01/26/18 02:00 01/26/18 03:21 01/26/18 04:00 Temperature 99.7 F H Pulse Rate 101 H 92 H 98 H Respiratory Rate 16 16 Blood Pressure 155/63 H Pulse Oximetry 97 96 01/26/18 06:00 01/26/18 08:19 01/26/18 10:19 Temperature Pulse Rate 100 H 99 H 95 H Respiratory Rate 18 21 Blood Pressure Pulse Oximetry 97 Intake & Output 01/25/18 01/26/18 01/26/18 18:59 06:59 18:59 Intake Total 1991 / 1991 1500 / 1500 240 / 240 Output Total 2210 / 2210 550 / 550 Balance -218 / -218 950 / 950 240 / 240 Weight 127.1 kg Intake: IV 189 / 1892 1500 / 1500 240 / 240 Brevibloc 2,500 mg/NS 250 mL 42 / 42 Premix 2,500 mg In 250 ml @ 50 MCG/KG/MIN 36.81 mls/hr IV.CONT TITRATE PRN Rx#:[id number] Diprivan 1000 mg/100 ml Inj 1, 200 / 200 400 / 400 90 / 90 000 mg In 100 ml @ 5 MCG/KG/MIN 3.681 mls/hr IV.CONT TITRATE PRN Rx#:[id number] Ofirmev Inj 1,000 mg In 100 ml 100 / 100 @ 400 mls/hr IV.SIG Q6H PRN Rx# :[id number] Gentamicin/NS 80 mg Premix 100 100 / 100 ML @ 200 mls/hr IV.SIG Q8H PEDRO Rx#:[id number] LR 1000 mL Inj 1,000 ML @ 40 1000 / 1000 1000 / 1000 mls/hr IV.SIG .Q24H PEDRO Rx#: [id number] Zosyn 4.5 GM Premix 4.5 gm In 200 / 200 100 / 100 100 ml @ 200 mls/hr IV.SIG Q8H PEDRO Rx#:[id number] fentaNYL 10 mcg/mL Premix Drip 250 / 250 150 / 150 2,500 mcg In 250 ml @ 50 MCG/HR 5 mls/hr IV.SIG TITRATE PRN Rx #:[id number] Tube Irrigant 100 / 100 Output: Urine Amount (Catheter) 1800 / 1800 400 / 400 Indwelling Urethral Catheter 1800 / 1800 400 / 400 Gastric Drainage 300 / 300 150 / 150 Orogastric Tube 300 / 300 Right Nare Nasogastric Tube 150 / 150 Wound Drainage 110 / 110 Left Abdomen DOMINIQUE Drain 110 / 110 Other: # Bowel Movements 0 Narrative: LLE: dressings clean and dry. intact. +cap refill. compartmends soft - Urinary Catheter Management Indwelling Urethral Catheter Cath placed during this visit: yes Reason for continuing: Hourly intake/output Insertion date: 01/23/18 Insertion time: 00:40 Results - Labs CBC & Chem 7: 01/26/18 06:15 01/26/18 06:15 Laboratory Results - last 24 hr 01/25/18 01/26/18 01/26/18 14:05 05:32 06:15 WBC 12.3 H RBC 2.72 L Hgb 8.3 L Hct 24.2 L MCV 88.9 MCH 30.4 MCHC 34.2 RDW 13.2 Plt Count 131 L D MPV 9.3 Neut % (Auto) 72.7 H Lymph % (Auto) 12.3 [place] % (Auto) 10.5 H Eos % (Auto) 4.1 H Baso % (Auto) 0.4 Neut # (Auto) 8.9 H Lymph # (Auto) 1.5 [place] # (Auto) 1.3 H Eos # (Auto) 0.5 H Baso # (Auto) 0.0 WBC Differential . Differential Comment Auto diff final Puncture Site Art line Patient Temperature 98.6 O2 Saturation 96 ABG pH 7.43 H ABG pCO2 42 ABG pO2 98 ABG HCO3 27 H ABG O2 Content 11.3 L ABG Base Excess 3.2 H ABG Methemoglobin 1.2 Hemoglobin 8.3 L Carboxyhemoglobin 1.5 O2 Delivery Device Ventilator Vent Setting Prvc/ac Inspired O2 40 Critical Value No Sodium Potassium Chloride Carbon Dioxide Anion Gap BUN Creatinine Estimated GFR Random Glucose Calcium Urine Color Fior Urine Clarity Cloudy H Urine pH 5.0 Ur Specific [place] 1.026 Urine Protein 100 H Urine Glucose (UA) Negative Urine Ketones Negative Urine Occult Blood Large H Urine Nitrate Negative Urine Bilirubin Negative Urine Urobilinogen Less than 2 Ur Leukocyte Esterase Negative Urine RBC 1 Urine WBC 2 Ur Squamous Epith Cells 2 Hyaline Casts 12 Granular Casts 11 Urine Mucus Few H Micro UA Comment Cath-culture not ind Ur Microscopic Review Not Reportable Urine Culture Comments Cath-cult not ind 01/26/18 06:15 WBC RBC Hgb Hct MCV MCH MCHC RDW Plt Count MPV Neut % (Auto) Lymph % (Auto) [place] % (Auto) Eos % (Auto) Baso % (Auto) Neut # (Auto) Lymph # (Auto) [place] # (Auto) Eos # (Auto) Baso # (Auto) WBC Differential Differential Comment Puncture Site Patient Temperature O2 Saturation ABG pH ABG pCO2 ABG pO2 ABG HCO3 ABG O2 Content ABG Base Excess ABG Methemoglobin Hemoglobin Carboxyhemoglobin O2 Delivery Device Vent Setting Inspired O2 Critical Value Sodium 142 Potassium 3.5 Chloride 106 Carbon Dioxide 28.9 Anion Gap 7 BUN 15 Creatinine 0.96 Estimated GFR Greater than 89 Random Glucose 122 H Calcium 7.5 L Urine Color Urine Clarity Urine pH Ur Specific [place] Urine Protein Urine Glucose (UA) Urine Ketones Urine Occult Blood Urine Nitrate Urine Bilirubin Urine Urobilinogen Ur Leukocyte Esterase Urine RBC Urine WBC Ur Squamous Epith Cells Hyaline Casts Granular Casts Urine Mucus Micro UA Comment Ur Microscopic Review Urine Culture Comments Microbiology 01/25/18 14:00 Sputum - Endotracheal Gram Stain - Final 01/25/18 14:00 Sputum - Endotracheal Sputum Culture - Preliminary Moderate growth normal respiratory giovany at 24 hours 01/23/18 18:27 Catheterized Urine Urine Culture - Final No growth in 48 hours - Imaging Impressions Chest X-Ray 01/26/18 00:00 CONCLUSION: Worsening aeration Assessment and Plan - Assessment and Plan 1) Left Femoral Shaft Fx s/p IMN - POD 3 -50%WB -daily dressing changes -DVT prophylaxis -medical mgmt -ortho surgeries complete -f/u jessa Santamaria or CRISTIANO in 2 weeks [id number] Prescription Drug Monitoring Database has been queried and verified prior to prescribing the controlled subsection. Patient is having significant pain caused by [injury] which will last more than 3 days. Trial of alternative treatment options other than prescribed opioids has not helped. I believe that it is medically necessary to treat the patients pain because it is affecting patients ability to [ambulate].
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
[2018-01-26] MEDS: Senna/Docusate Sodium 8.6/50 MG Tablet PO SCH ×2 (12:59→19:59)
[2018-01-26] MEDS: QUEtiapine 25 MG Tablet PO SCH ×2 (12:59→18:01)
[2018-01-26] MEDS: Enoxaparin Inj 30 MG/0.3 ML Syringe SQ SCH ×2 (12:59→22:04)
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
[2018-01-26] MEDS ORDERED: Dexmedetomidine Inj 200 MCG in Sodium Chlor 0.9% Inj 48 ML IV.CONT PRN (18:59)
[2018-01-26] MEDS: Haloperidol Inj 5 MG/ML Ampul IV.PUSH PRN (21:02)
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
[2018-01-26] MEDS: Ketorolac Inj 30 MG/ML (IVP) Vial IV.PUSH PRN (22:25)
[2018-01-27] MEDS: Oral Hygiene Kit OROPHARYNG SCH ×4 (00:14→17:05)
[2018-01-27] MEDS: Haloperidol Inj 5 MG/ML Ampul IV.PUSH PRN (02:51)
[2018-01-27] MEDS: Ketorolac Inj 30 MG/ML (IVP) Vial IV.PUSH PRN ×2 (04:03→15:53)
[2018-01-27] MEDS: Metoprolol Inj 5 MG/5 ML Vial IV.PUSH SCH ×4 (04:03→22:09)
[2018-01-27] MEDS: Chlorhexidine Gluconate 2% 1 Pack (2 Cloths) TOPICAL SCH (04:04)
[2018-01-27 05:09] LABS: Baso # (Auto) 0.1 th/mm3 (0.0-0.2); Baso % (Auto) 0.6 % (0.0-2.0); Eos # (Auto) 0.3 th/mm3 (0.0-0.4); Hematocrit 25.1 % (39.0-51.0); Hemoglobin 8.5 gm/dL (13.0-17.0); Lymph # (Auto) 1.3 th/mm3 (1.0-4.8); Lymph % (Auto) 12.6 % (9.0-44.0); Mean Corpuscular Hemoglobin 30.6 pg (27.0-34.0); Mean Corpuscular Volume 90.1 fL (80.0-100.0); Mean Platelet Volume 9.3 fL (7.0-11.0); Mono # (Auto) 1.2 th/mm3 (0.0-0.9); Mono % (Auto) 11.5 % (0.0-8.0); Neut # (Auto) 7.7 th/mm3 (1.8-7.7); Neut % (Auto) 72.3 % (16.0-70.0); Platelet Count 172 th/mm3 (150-450); Red Blood Count 2.78 mil/mm3 (4.50-5.90); Red Cell Distribution Width 12.9 % (11.6-17.2); White Blood Count 10.7 th/mm3 (4.0-11.0)
[2018-01-27 05:22] LABS: Anion Gap 10 meq/L (5-15); Blood Urea Nitrogen 15 mg/dL (7-18); Calcium 7.7 mg/dL (8.5-10.1); Carbon Dioxide 27.1 meq/L (21.0-32.0); Chloride 107 meq/L (98-107); Glomerular Filtration Rate Greater Than 89 mL/min (>89); Glucose,Random 110 mg/dL (74-106); Potassium 3.2 meq/L (3.5-5.1); Sodium 144 meq/L (136-145)
--- NOTE | 2018-01-27 05:23 | XR ---
EXAM DATE: 01/27/2018 3:56 AM EDT AGE/SEX: 22 years / Male INDICATIONS: Shortness of breath. CLINICAL DATA: This is the patient's subsequent encounter. Patient reports that signs and symptoms h ave been present for 4 - 6 days and indicates a pain score of Nonresponsive. MEDICAL/SURGICAL HISTORY: Non-responsive. Non-responsive. COMPARISON: C, CHEST 1V SINGLE AP, 01/26/2018. . FINDINGS: Small right and moderate left pleural effusions with basilar consolidation persist and not significan tly changed. No pneumothorax seen. Heart size stable, upper limits of normal. Wire stent graft of the distal arch and proximal descendin g portions of the thoracic aorta again seen. Patient has been extubated. Nasogastric tube remains in place, coursing into the stomach. CONCLUSION: No significant change. Electronically signed by: Davon Vernon MD 01/27/2018 5:22 AM EDT
[2018-01-27] MEDS: Potassium Chlor 20 mEq Premix 20 MEQ/100 ML PIGGYBACK IV.SIG PRN ×4 (07:24→14:42)
[2018-01-27 07:25] LABS: ABG Base Excess 5.4 mmol/L (-2-2); ABG PCO2 45 mmHg (38-42); ABG PO2 72 mmHg (61-120)
[2018-01-27] MEDS: Chlorhexidine 0.12% Oral Kit 15 ML UDC OROPHARYNG SCH ×2 (07:26→23:23)
[2018-01-27 08:03] LABS: Eosinophils 3 % (0-4); Lymphocytes 13 % (9-44); Monocytes 13 % (0-8); Platelet Estimate Normal (Normal); Platelet Morphology Normal (Normal)
[2018-01-27] MEDS: Famotidine PF Inj 20 MG/2 ML Vial IV.PUSH SCH ×2 (08:04→22:09)
[2018-01-27] MEDS: Senna/Docusate Sodium 8.6/50 MG Tablet PO SCH ×2 (08:04→22:10)
[2018-01-27] MEDS: QUEtiapine 25 MG Tablet PO SCH ×4 (08:04→17:06)
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
[2018-01-27] MEDS: Enoxaparin Inj 30 MG/0.3 ML Syringe SQ SCH ×2 (10:49→22:15)
[2018-01-27] MEDS: Acetaminophen 325 MG Tablet PO PRN (15:53)
[2018-01-27] MEDS: Piperacil/Tazo 4.5 GM Premix 4.5 GM/100 ML BAG IV.SIG SCH (22:07)
[2018-01-27] MEDS: Vancomycin Inj 1,000 MG in Sodium Chlor 0.9% Inj 250 ML IV.SIG SCH (23:22)
[2018-01-28] MEDS: Oral Hygiene Kit OROPHARYNG SCH ×4 (01:56→17:27)
--- NOTE | 2018-01-28 03:54 | XR ---
EXAM DATE: 01/28/2018 3:50 AM EDT AGE/SEX: 22 years / Male INDICATIONS: Shortness of breath CLINICAL DATA: This is the patient's subsequent encounter. Patient reports that signs and symptoms h ave been present for 1 week and indicates a pain score of Nonresponsive. MEDICAL/SURGICAL HISTORY: Non-responsive. Non-responsive. COMPARISON: [facility] [place], CHEST 1V SINGLE AP, 01/27/2018. . FINDINGS: Left greater than right basilar consolidation again noted and both sides are slightly improved in the interim. There is probably a small left pleural effusion. No pneumothorax seen. Heart size stable, upper limits of normal. Aortic stent graft is again seen. The nasogastric tube is been removed in the interim. CONCLUSION: Modestly improved left greater than right basilar consolidation. Nasogastric tube out. Electronically signed by: Davon Vernon MD 01/28/2018 3:53 AM EDT
[2018-01-28 04:38] LABS: Baso % (Auto) 0.2 % (0.0-2.0); Eos % (Auto) 0.1 % (0.0-4.0); Hematocrit 29.2 % (39.0-51.0); Hemoglobin 9.8 gm/dL (13.0-17.0); Lymph # (Auto) 1.1 th/mm3 (1.0-4.8); Lymph % (Auto) 7.3 % (9.0-44.0); Mean Corpuscular HGB Conc 33.6 % (32.0-36.0); Mean Corpuscular Hemoglobin 30.5 pg (27.0-34.0); Mean Corpuscular Volume 90.6 fL (80.0-100.0); Mean Platelet Volume 8.3 fL (7.0-11.0); Mono # (Auto) 1.2 th/mm3 (0.0-0.9); Mono % (Auto) 8.5 % (0.0-8.0); Neut # (Auto) 12.3 th/mm3 (1.8-7.7); Neut % (Auto) 83.9 % (16.0-70.0); Platelet Count 246 th/mm3 (150-450); Red Blood Count 3.22 mil/mm3 (4.50-5.90); Red Cell Distribution Width 13.3 % (11.6-17.2); White Blood Count 14.7 th/mm3 (4.0-11.0)
[2018-01-28] MEDS: Piperacil/Tazo 4.5 GM Premix 4.5 GM/100 ML BAG IV.SIG SCH ×4 (04:56→21:03)
[2018-01-28] MEDS: Metoprolol Inj 5 MG/5 ML Vial IV.PUSH SCH ×4 (04:57→21:04)
[2018-01-28 05:04] LABS: Calcium 7.8 mg/dL (8.5-10.1); Carbon Dioxide 26.4 meq/L (21.0-32.0); Potassium 3.9 meq/L (3.5-5.1)
[2018-01-28] MEDS: Famotidine PF Inj 20 MG/2 ML Vial IV.PUSH SCH ×2 (08:39→21:03)
[2018-01-28] MEDS: Senna/Docusate Sodium 8.6/50 MG Tablet PO SCH ×2 (08:40→21:04)
[2018-01-28] MEDS: Chlorhexidine 0.12% Oral Kit 15 ML UDC OROPHARYNG SCH ×2 (08:40→21:02)
[2018-01-28] MEDS: Vancomycin Inj 1,000 MG in Sodium Chlor 0.9% Inj 250 ML IV.SIG SCH (08:41)
[2018-01-28] MEDS: Enoxaparin Inj 30 MG/0.3 ML Syringe SQ SCH ×2 (11:00→23:59)
[2018-01-28] MEDS: QUEtiapine 25 MG Tablet PO SCH ×3 (13:30→17:27)
[2018-01-28] MEDS ORDERED: Vancomycin Consult Pharmacy OTHER PRN (13:55)
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
[2018-01-28 15:16] LABS: Albumin 2.3 g/dL (3.4-5.0)
[2018-01-28 15:25] LABS: Total Protein 6.9 g/dL (6.4-8.2)
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
[2018-01-28] MEDS: Vancomycin Inj 2,250 MG in Sodium Chlor 0.9% Inj 500 ML IV.SIG SCH ×2 (17:30→23:59)
[2018-01-28 18:43] LABS: Bilirubin,Urine Negative (Negative); Clarity,Urine Clear (Clear); Color,Urine Amber (Yellw/Straw); Glucose,Urine (UA) Negative (Negative); Leukocyte Esterase,Urine Negative (Negative); Mucus,Urine Few /lpf (Occasional); Nitrite,Urine Negative (Negative); Specific Gravity,Urine 1.028 (1.002-1.035)
[2018-01-29] MEDS: Oral Hygiene Kit OROPHARYNG SCH ×4 (02:34→17:03)
[2018-01-29] MEDS: Piperacil/Tazo 4.5 GM Premix 4.5 GM/100 ML BAG IV.SIG SCH ×4 (02:35→20:30)
[2018-01-29 04:48] LABS: Baso # (Auto) 0.1 th/mm3 (0.0-0.2); Baso % (Auto) 0.7 % (0.0-2.0); Eos # (Auto) 0.5 th/mm3 (0.0-0.4); Eos % (Auto) 4.4 % (0.0-4.0); Hematocrit 24.9 % (39.0-51.0); Hemoglobin 8.4 gm/dL (13.0-17.0); Lymph # (Auto) 1.8 th/mm3 (1.0-4.8); Lymph % (Auto) 14.4 % (9.0-44.0); Mean Corpuscular HGB Conc 33.9 % (32.0-36.0); Mean Corpuscular Hemoglobin 30.2 pg (27.0-34.0); Mean Platelet Volume 7.6 fL (7.0-11.0); Mono # (Auto) 1.4 th/mm3 (0.0-0.9); Mono % (Auto) 11.5 % (0.0-8.0); Neut # (Auto) 8.6 th/mm3 (1.8-7.7); Platelet Count 292 th/mm3 (150-450); Red Blood Count 2.79 mil/mm3 (4.50-5.90); White Blood Count 12.4 th/mm3 (4.0-11.0)
[2018-01-29 05:19] LABS: Alanine Aminotransferase 104 U/L (12-78); Alkaline Phosphatase 77 U/L (45-117); Anion Gap 8 meq/L (5-15); Aspartate Aminotransferase 130 U/L (15-37); Blood Urea Nitrogen 22 mg/dL (7-18); Calcium 7.3 mg/dL (8.5-10.1); Carbon Dioxide 27.9 meq/L (21.0-32.0); Chloride 106 meq/L (98-107); Glomerular Filtration Rate Greater Than 89 mL/min (>89); Glucose,Random 114 mg/dL (74-106); Sodium 142 meq/L (136-145); Total Protein 5.3 g/dL (6.4-8.2)
[2018-01-29 05:23] LABS: Potassium 2.8 meq/L (3.5-5.1)
[2018-01-29] MEDS: Metoprolol Inj 5 MG/5 ML Vial IV.PUSH SCH ×4 (05:35→22:41)
[2018-01-29] MEDS: Potassium Chlor 20 mEq Premix 20 MEQ/100 ML PIGGYBACK IV.SIG PRN ×4 (06:12→13:23)
[2018-01-29 08:06] LABS: Eosinophils 1 % (0-4); Lymphocytes 15 % (9-44); Metamyelocytes 3 % (0-1); Monocytes 6 % (0-8); Promyelocyte 1 % (0-0)
[2018-01-29 08:07] LABS: Platelet Estimate Normal (Normal); Platelet Morphology Normal (Normal); Toxic Granulation 1+
[2018-01-29] MEDS: Chlorhexidine 0.12% Oral Kit 15 ML UDC OROPHARYNG SCH ×2 (08:15→20:48)
[2018-01-29] MEDS: QUEtiapine 25 MG Tablet PO SCH ×3 (09:37→17:56)
[2018-01-29] MEDS: Famotidine PF Inj 20 MG/2 ML Vial IV.PUSH SCH ×2 (09:38→20:44)
[2018-01-29] MEDS: Senna/Docusate Sodium 8.6/50 MG Tablet PO SCH ×2 (09:39→20:48)
[2018-01-29] MEDS: Vancomycin Inj 2,250 MG in Sodium Chlor 0.9% Inj 500 ML IV.SIG SCH ×2 (09:39→17:57)
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
[2018-01-29] MEDS: Enoxaparin Inj 30 MG/0.3 ML Syringe SQ SCH ×2 (13:21→22:29)
[2018-01-29] MEDS: Pharmacy Ordered Lab Info OTHER ONE ×2 (16:37→17:04)
[2018-01-30] MEDS: Oral Hygiene Kit OROPHARYNG SCH ×2 (00:27→03:17)
[2018-01-30] MEDS: Piperacil/Tazo 4.5 GM Premix 4.5 GM/100 ML BAG IV.SIG SCH ×4 (02:29→22:21)
[2018-01-30] MEDS: Metoprolol Inj 5 MG/5 ML Vial IV.PUSH SCH (03:10)
[2018-01-30 05:09] LABS: Baso % (Auto) 0.3 % (0.0-2.0); Eos # (Auto) 0.5 th/mm3 (0.0-0.4); Eos % (Auto) 3.7 % (0.0-4.0); Hematocrit 26.5 % (39.0-51.0); Hemoglobin 8.9 gm/dL (13.0-17.0); Lymph # (Auto) 1.6 th/mm3 (1.0-4.8); Lymph % (Auto) 12.8 % (9.0-44.0); Mean Corpuscular HGB Conc 33.6 % (32.0-36.0); Mean Corpuscular Hemoglobin 30.4 pg (27.0-34.0); Mean Corpuscular Volume 90.5 fL (80.0-100.0); Mean Platelet Volume 7.6 fL (7.0-11.0); Mono # (Auto) 1.4 th/mm3 (0.0-0.9); Mono % (Auto) 11.7 % (0.0-8.0); Neut # (Auto) 8.8 th/mm3 (1.8-7.7); Neut % (Auto) 71.5 % (16.0-70.0); Platelet Count 307 th/mm3 (150-450); Red Blood Count 2.93 mil/mm3 (4.50-5.90); Red Cell Distribution Width 13.2 % (11.6-17.2); White Blood Count 12.3 th/mm3 (4.0-11.0)
[2018-01-30 05:26] LABS: Alanine Aminotransferase 143 U/L (12-78); Albumin 2.1 g/dL (3.4-5.0); Alkaline Phosphatase 96 U/L (45-117); Anion Gap 7 meq/L (5-15); Aspartate Aminotransferase 130 U/L (15-37); Blood Urea Nitrogen 20 mg/dL (7-18); Calcium 7.8 mg/dL (8.5-10.1); Carbon Dioxide 27.5 meq/L (21.0-32.0); Chloride 109 meq/L (98-107); Glomerular Filtration Rate 72 mL/min (>89); Glucose,Random 103 mg/dL (74-106); Sodium 143 meq/L (136-145); Total Protein 5.5 g/dL (6.4-8.2)
[2018-01-30 05:30] LABS: Potassium 2.9 meq/L (3.5-5.1)
[2018-01-30] MEDS ORDERED: Vancomycin Inj 1,500 MG in Sodium Chlor 0.9% Inj 500 ML IV.SIG SCH (06:00)
[2018-01-30 06:50] LABS: Monocytes 9 % (0-8); Myelocytes 2 % (0-0)
[2018-01-30 06:51] LABS: Eosinophils 5 % (0-4); Lymphocytes 11 % (9-44); Metamyelocytes 1 % (0-1)
[2018-01-30 06:52] LABS: Platelet Estimate Normal (Normal); Platelet Morphology Normal (Normal)
[2018-01-30] MEDS: Chlorhexidine 0.12% Oral Kit 15 ML UDC OROPHARYNG SCH ×2 (07:48→22:21)
[2018-01-30] MEDS ORDERED: Potassium Chloride 25 MEQ Effervescent Tablet PO ONE (07:50)
[2018-01-30] MEDS: Metoprolol Tartrate 25 MG Tablet PO SCH ×2 (08:18→22:21)
[2018-01-30] MEDS: Senna/Docusate Sodium 8.6/50 MG Tablet PO SCH ×2 (08:18→22:22)
[2018-01-30] MEDS: Famotidine PF Inj 20 MG/2 ML Vial IV.PUSH SCH ×2 (08:18→22:22)
[2018-01-30] MEDS: QUEtiapine 25 MG Tablet PO SCH ×3 (08:20→17:55)
--- NOTE | 2018-01-30 08:44 | P.PNNPSY ---
- Progress Notes/Response to Treatment Contents of Sessions: Adjustment, Level of consciousness Time with Patient: 15 minutes Premorbid Psychological Status: Premorbid Cognitive, Emotional and Behavioral Status: Tenuous. The patient has high school years of education and a solid work history prior to this injury. The patient has no prior psychiatric difficulties, as described above. Substance abuse history is unremarkable. Behavioral Reactions of Patient and Family/Support System: Tenuous. The patients family is experiencing ongoing issues of adjustment given the nature of the injury, and this aspect of recovery will require ongoing monitoring. Emotional/Behavioral Status of Patient and Family/Support System: Tenuous. Pertinent issues, if appropriate to this patients clinical care, are described in detail above. Maximizing Acute Care Outcome: It is recommended that the patient be monitored for emergent behavioral impulsivity as the medical condition evolves. This patients neuropathological challenges may limit rehabilitation potential going forward, and these challenges will require specialized therapeutic skills to maximize outcome. Additionally, the patients family is experiencing ongoing issues of adjustment given the traumatic nature of the injury, and they may benefit from ongoing psychological assistance. At this point in the recovery process, the patient does not have cognitive capacity as the patient is unable to understand a situation and its likely consequences, nor is the patient able to manipulate information rationally. Cognitive capacity will be assessed throughout the recovery process. Anticipated Problems: Ongoing areas of concern will include behavioral impulsivity, lack of insight and judgment, which is expected to improve with time and treatment. Treatment Plan: This clinician will continue to follow with you throughout the course of this patients critical care treatment, and I will be available to meet with the patients family/support system to facilitate their understanding and the ongoing care of their family member. The goals of neuropsychological intervention shall be both educational and supportive to the family/support system as is deemed clinically appropriate. Disinhibition Score: 24.50 Aggression Score: 17.50 Lability Score: 14.00 Agitated Behavior Total Score: 20 Impression: 22 year old male s/p possible concussion 2T [facility] on 01/23/2018. Progress Note Narrative: PTD 8. The patient is transferred to the floor. Agitation/restlessness is manageable. ABS is 20 (24.5,17.5,14). It is recalled that this patient does not have a brain injury, at most concussion. He is managed on Seroquel 25 TID. I will follow. - Diagnosis (1) Mild neurocognitive disorder due to traumatic brain injury Status: Acute
[2018-01-30] MEDS: Enoxaparin Inj 30 MG/0.3 ML Syringe SQ SCH ×2 (10:54→22:23)
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
[2018-01-30] MEDS: Potassium Chloride Inj 20 MEQ in Sodium Chlor 0.9% Inj 100 ML IV.SIG PRN ×3 (11:29→16:21)
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
[2018-01-30] MEDS ORDERED: Pharmacy Ordered Lab Info OTHER ONE (13:45)
[2018-01-30] MEDS: Vancomycin Inj 1,500 MG in Sodium Chlor 0.9% Inj 500 ML IV.SIG SCH (15:58)
[2018-01-31] MEDS: Piperacil/Tazo 4.5 GM Premix 4.5 GM/100 ML BAG IV.SIG SCH ×4 (02:44→20:28)
[2018-01-31] MEDS: Vancomycin Inj 1,500 MG in Sodium Chlor 0.9% Inj 500 ML IV.SIG SCH ×2 (02:44→07:18)
[2018-01-31 04:50] LABS: Baso # (Auto) 0.1 th/mm3 (0.0-0.2); Baso % (Auto) 0.4 % (0.0-2.0); Eos # (Auto) 0.4 th/mm3 (0.0-0.4); Eos % (Auto) 2.5 % (0.0-4.0); Hematocrit 24.9 % (39.0-51.0); Hemoglobin 8.5 gm/dL (13.0-17.0); Lymph # (Auto) 1.6 th/mm3 (1.0-4.8); Lymph % (Auto) 10.7 % (9.0-44.0); Mean Corpuscular HGB Conc 34.3 % (32.0-36.0); Mean Corpuscular Hemoglobin 30.5 pg (27.0-34.0); Mean Corpuscular Volume 88.9 fL (80.0-100.0); Mean Platelet Volume 7.8 fL (7.0-11.0); Mono # (Auto) 2.1 th/mm3 (0.0-0.9); Mono % (Auto) 13.5 % (0.0-8.0); Neut # (Auto) 11.1 th/mm3 (1.8-7.7); Neut % (Auto) 72.9 % (16.0-70.0); Platelet Count 338 th/mm3 (150-450); White Blood Count 15.2 th/mm3 (4.0-11.0)
[2018-01-31 05:14] LABS: Alanine Aminotransferase 164 U/L (12-78)
[2018-01-31 05:16] LABS: Alkaline Phosphatase 103 U/L (45-117); Total Protein 5.6 g/dL (6.4-8.2)
[2018-01-31 05:23] LABS: Anion Gap 10 meq/L (5-15); Aspartate Aminotransferase 130 U/L (15-37); Blood Urea Nitrogen 16 mg/dL (7-18); Calcium 7.8 mg/dL (8.5-10.1); Chloride 110 meq/L (98-107); Glomerular Filtration Rate 82 mL/min (>89); Glucose,Random 109 mg/dL (74-106); Potassium 3.4 meq/L (3.5-5.1); Sodium 143 meq/L (136-145)
[2018-01-31] MEDS ORDERED: Pharmacy Ordered Lab Info OTHER ONE ×2 (05:45→14:45)
--- NOTE | 2018-01-31 06:32 | P.PNOP ---
Subjective Interval history: Patient is awake. No complaints. Resting comfortably Physical Exam Vital signs: Vital Signs 01/30/18 08:00 01/30/18 09:29 01/30/18 12:00 Temperature 98 F 98 F Pulse Rate 90 86 Respiratory Rate 18 18 Blood Pressure 128/65 137/61 Pulse Oximetry 98 98 96 01/30/18 16:00 01/30/18 20:00 01/30/18 23:30 Temperature 97.3 F L 98.8 F Pulse Rate 95 H 101 H 97 H Respiratory Rate 17 Blood Pressure 126/57 L 150/59 H Pulse Oximetry 96 96 01/31/18 00:00 Temperature 99.1 F Pulse Rate 94 H Respiratory Rate 17 Blood Pressure 147/65 H Pulse Oximetry 96 Intake & Output 01/30/18 01/30/18 01/31/18 06:59 18:59 06:59 Intake Total 300 / 300 1045 / 1045 Output Total 3550 / 3550 3100 / 3100 Balance -3250 / -3250 -2055 / -2055 Weight 128.5 kg Intake: IV 300 / 300 1045 / 1045 Zosyn 4.5 GM Premix 4.5 gm In 200 / 200 200 / 200 100 ml @ 200 mls/hr IV.SIG Q6H PEDRO Rx#:[id number] KCl 20 mEq Premix Inj 20 meq In 100 / 100 100 ml @ 50 mls/hr IV.SIG Q2H PRN Rx#:[id number] KCl Inj 20 MEQ In NS Inj 100 ML 330 / 330 @ 55 mls/hr IV.SIG Q2H PRN Rx# :[id number] Vancomycin Inj 1,500 MG In NS 515 / 515 Inj 500 ML @ 250 mls/hr IV.SIG Q8H PEDRO Rx#:[id number] Output: Urine 3550 / 3550 1600 / 1600 Urine Amount (Catheter) 1500 / 1500 Indwelling Urethral Catheter 1500 / 1500 Other: Date of Last Bowel Movement 01/30/18 01/30/18 01/30/18 # Bowel Movements 3 # Incontinent Bowel Movements 4 2 Narrative: Ten is awake. Examination of left leg reveals incisions are clean and dry. He has minimal pain with gentle knee or hip motion. He is unable to actively dorsiflex his ankle against gravity. He is able to plantarflex his ankle. Skin is intact. - Urinary Catheter Management Indwelling Urethral Catheter Cath placed during this visit: yes, but has since been removed by the nurse Reason for continuing: Acute urinary retention Insertion date: 01/30/18 Insertion time: 02:35 Removal date: 01/30/18 Results - Labs CBC & Chem 7: 01/31/18 03:46 01/31/18 03:46 Laboratory Results - last 24 hr 01/30/18 01/30/18 01/30/18 03:53 08:40 08:40 WBC RBC Hgb Hct MCV MCH MCHC RDW Plt Count MPV Prelim Diff (Auto) Neut % (Auto) Lymph % (Auto) [place] % (Auto) Eos % (Auto) Baso % (Auto) Neut # (Auto) Lymph # (Auto) [place] # (Auto) Eos # (Auto) Baso # (Auto) WBC Differential Manual diff final Seg Neuts % (Manual) 62 Band Neuts % (Manual) 10 H Lymphocytes % (Manual) 11 Monocytes % (Manual) 9 H Eosinophils % (Manual) 5 H Metamyelocytes % (Man) 1 Myelocytes % (Man) 2 H Abs Neuts (Manual) 9.2 H Differential Comment Platelet Estimate Normal Platelet Morphology Normal Sodium Potassium Chloride Carbon Dioxide Anion Gap BUN Creatinine Estimated GFR Random Glucose Calcium Total Bilirubin AST ALT Alkaline Phosphatase Total Protein Albumin Ur Specific [place] Urine Osmolality 230 L Ur Random Sodium 36 Stl C.difficile Tox PCR St C. diff Tox Epid 027 Vancomycin Trough 01/30/18 01/30/18 01/30/18 08:40 08:40 13:49 WBC RBC Hgb Hct MCV MCH MCHC RDW Plt Count MPV Prelim Diff (Auto) Neut % (Auto) Lymph % (Auto) [place] % (Auto) Eos % (Auto) Baso % (Auto) Neut # (Auto) Lymph # (Auto) [place] # (Auto) Eos # (Auto) Baso # (Auto) WBC Differential Seg Neuts % (Manual) Band Neuts % (Manual) Lymphocytes % (Manual) Monocytes % (Manual) Eosinophils % (Manual) Metamyelocytes % (Man) Myelocytes % (Man) Abs Neuts (Manual) Differential Comment Platelet Estimate Platelet Morphology Sodium Potassium Chloride Carbon Dioxide Anion Gap BUN Creatinine Estimated GFR Random Glucose Calcium Total Bilirubin AST ALT Alkaline Phosphatase Total Protein Albumin Ur Specific [place] 1.006 Urine Osmolality Ur Random Sodium Stl C.difficile Tox PCR Negative St C. diff Tox Epid 027 Negative Vancomycin Trough 6.4 01/30/18 01/31/18 01/31/18 17:26 03:46 03:46 WBC 15.2 H RBC 2.80 L Hgb 8.5 L Hct 24.9 L MCV 88.9 MCH 30.5 MCHC 34.3 RDW 13.0 Plt Count 338 MPV 7.8 Prelim Diff (Auto) Slide review pending Neut % (Auto) 72.9 H Lymph % (Auto) 10.7 [place] % (Auto) 13.5 H Eos % (Auto) 2.5 Baso % (Auto) 0.4 Neut # (Auto) 11.1 H Lymph # (Auto) 1.6 [place] # (Auto) 2.1 H Eos # (Auto) 0.4 Baso # (Auto) 0.1 WBC Differential Seg Neuts % (Manual) Band Neuts % (Manual) Lymphocytes % (Manual) Monocytes % (Manual) Eosinophils % (Manual) Metamyelocytes % (Man) Myelocytes % (Man) Abs Neuts (Manual) Differential Comment . Platelet Estimate Platelet Morphology Sodium 143 Potassium 3.5 3.4 L Chloride 110 H Carbon Dioxide 23.0 Anion Gap 10 BUN 16 Creatinine 1.10 Estimated GFR 82 L Random Glucose 109 H Calcium 7.8 L Total Bilirubin 1.7 H AST 130 H ALT 164 H Alkaline Phosphatase 103 Total Protein 5.6 L Albumin 2.0 L Ur Specific [place] Urine Osmolality Ur Random Sodium Stl C.difficile Tox PCR St C. diff Tox Epid 027 Vancomycin Trough Microbiology 01/29/18 09:37 Sputum - Expectorated Sputum Gram Stain - Final 01/29/18 09:37 Sputum - Expectorated Sputum Sputum Culture - Preliminary Heavy growth normal respiratory giovany at 24 hours 01/28/18 20:30 Blood - Peripheral Aerobic Blood Culture - Preliminary No growth in 2 days 01/28/18 20:30 Blood - Peripheral Anaerobic Blood Culture - Preliminary No growth in 2 days 01/28/18 20:25 Blood - Peripheral Aerobic Blood Culture - Preliminary No growth in 2 days 01/28/18 20:25 Blood - Peripheral Anaerobic Blood Culture - Preliminary No growth in 2 days 01/27/18 21:30 Blood - Arterial Line Aerobic Blood Culture - Preliminary No growth in 3 days 01/27/18 21:30 Blood - Arterial Line Anaerobic Blood Culture - Final QNS - See aerobic report. 01/25/18 19:50 Blood - Peripheral Aerobic Blood Culture - Final No growth in 5 days 01/25/18 19:50 Blood - Peripheral Anaerobic Blood Culture - Final No growth in 5 days 01/25/18 20:00 Blood - Peripheral Aerobic Blood Culture - Final No growth in 5 days 01/25/18 20:00 Blood - Peripheral Anaerobic Blood Culture - Final No growth in 5 days 01/27/18 20:50 Catheterized Urine Urine Culture - Final No growth in 48 hours Assessment and Plan - Assessment and Plan 1) Left Femoral Shaft Fx s/p IMN - -50%WB -daily dressing changes -DVT prophylaxis -medical mgmt -ortho surgeries complete -f/u with Rosalio or [facility]RISTIANO in 2 weeks -WinProbe left ankle [employer] [place] Prescription Drug Monitoring Database has been queried and verified prior to prescribing the controlled subsection. Patient is having significant pain caused by [injury] which will last more than 3 days. Trial of alternative treatment options other than prescribed opioids has not helped. I believe that it is medically necessary to treat the patients pain because it is affecting patients ability to [ambulate].
[2018-01-31] MEDS: Chlorhexidine 0.12% Oral Kit 15 ML UDC OROPHARYNG SCH (07:19)
[2018-01-31] MEDS: Metoprolol Tartrate 25 MG Tablet PO SCH ×2 (08:07→20:28)
[2018-01-31] MEDS: QUEtiapine 25 MG Tablet PO SCH (08:07)
[2018-01-31] MEDS: Famotidine PF Inj 20 MG/2 ML Vial IV.PUSH SCH ×2 (08:08→20:29)
[2018-01-31 08:16] LABS: Eosinophils 2 % (0-4); Lymphocytes 11 % (9-44); Monocytes 7 % (0-8); Platelet Estimate Normal (Normal); Platelet Morphology Normal (Normal); RBC Morphology Normal (Normal)
[2018-01-31] MEDS: Senna/Docusate Sodium 8.6/50 MG Tablet PO SCH (08:17)
--- NOTE | 2018-01-31 08:54 | P.PNNPSY ---
- Progress Notes/Response to Treatment Time with Patient: 15 minutes Premorbid Psychological Status: Premorbid Cognitive, Emotional and Behavioral Status: Tenuous. The patient has high school years of education and a solid work history prior to this injury. The patient has no prior psychiatric difficulties, as described above. Substance abuse history is unremarkable. Behavioral Reactions of Patient and Family/Support System: Tenuous. The patients family is experiencing ongoing issues of adjustment given the nature of the injury, and this aspect of recovery will require ongoing monitoring. Emotional/Behavioral Status of Patient and Family/Support System: Tenuous. Pertinent issues, if appropriate to this patients clinical care, are described in detail above. Maximizing Acute Care Outcome: It is recommended that the patient be monitored for emergent behavioral impulsivity as the medical condition evolves. This patients neuropathological challenges may limit rehabilitation potential going forward, and these challenges will require specialized therapeutic skills to maximize outcome. Additionally, the patients family is experiencing ongoing issues of adjustment given the traumatic nature of the injury, and they may benefit from ongoing psychological assistance. At this point in the recovery process, the patient does not have cognitive capacity as the patient is unable to understand a situation and its likely consequences, nor is the patient able to manipulate information rationally. Cognitive capacity will be assessed throughout the recovery process. Anticipated Problems: Ongoing areas of concern will include behavioral impulsivity, lack of insight and judgment, which is expected to improve with time and treatment. Treatment Plan: This clinician will continue to follow with you throughout the course of this patients critical care treatment, and I will be available to meet with the patients family/support system to facilitate their understanding and the ongoing care of their family member. The goals of neuropsychological intervention shall be both educational and supportive to the family/support system as is deemed clinically appropriate. Disinhibition Score: 14.00 Aggression Score: 14.00 Lability Score: 14.00 Agitated Behavior Total Score: 14 Impression: 22 year old male s/p possible concussion 2T [facility] [place] on 01/23/2018. Progress Note Narrative: PTD 9. The patient is stable, no agitation/restlessness. Consider lowering Seroquel at this time, given ABS of 14 (14,14,14), and consider 25 HS. He is diagnosed with concussion, and is referred to concussion program as an outpatient. I will follow. - Diagnosis (1) Mild neurocognitive disorder due to traumatic brain injury Status: Acute
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
[2018-01-31] MEDS: Enoxaparin Inj 30 MG/0.3 ML Syringe SQ SCH ×2 (11:05→23:40)
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
[2018-01-31] MEDS ORDERED: Morphine Inj 4 MG/ML Vial IV.PUSH STA (20:17)
[2018-01-31] MEDS ORDERED: Haloperidol Inj 5 MG/ML Ampul IV.PUSH PRN (20:58)
[2018-01-31] MEDS ORDERED: QUEtiapine 25 MG Tablet PO SCH (21:00)
--- NOTE | 2018-01-31 22:11 | XR ---
EXAM DATE: 01/31/2018 7:57 PM EDT AGE/SEX: 22 years / Male INDICATIONS: Shortness of breath. Painful respirations. CLINICAL DATA: This is the patient's subsequent encounter. Patient reports that signs and symptoms h ave been present for 2 days and indicates a pain score of Nonresponsive. MEDICAL/SURGICAL HISTORY: Non-responsive. Non-responsive. COMPARISON: C, CHEST 1V SINGLE AP, 01/28/2018. . FINDINGS: Patchy areas of infiltrate in left mid and lower lung with loss of delineation of the left hemidiaphr agm is similar to prior examination 3 days ago. Previously noted infiltrate at the right lung base yeh s resolved. No evidence of pneumothorax. Mild cardiomegaly, stable. Aortic stent. CONCLUSION: Persistent partially consolidative left lower lung infiltrate. Resolved right lower lung infiltrate. Electronically signed by: Stevenson Villalta MD 01/31/2018 10:10 PM EDT
[2018-02-01] MEDS: Piperacil/Tazo 4.5 GM Premix 4.5 GM/100 ML BAG IV.SIG SCH ×4 (01:34→21:07)
[2018-02-01 07:40] LABS: Baso # (Auto) 0.1 th/mm3 (0.0-0.2); Baso % (Auto) 0.5 % (0.0-2.0); Eos # (Auto) 0.4 th/mm3 (0.0-0.4); Eos % (Auto) 3.3 % (0.0-4.0); Hematocrit 27.7 % (39.0-51.0); Hemoglobin 9.1 gm/dL (13.0-17.0); Lymph # (Auto) 1.8 th/mm3 (1.0-4.8); Lymph % (Auto) 13.6 % (9.0-44.0); Mean Corpuscular HGB Conc 32.8 % (32.0-36.0); Mean Corpuscular Hemoglobin 29.6 pg (27.0-34.0); Mean Corpuscular Volume 90.3 fL (80.0-100.0); Mean Platelet Volume 7.9 fL (7.0-11.0); Mono # (Auto) 1.5 th/mm3 (0.0-0.9); Mono % (Auto) 11.2 % (0.0-8.0); Neut # (Auto) 9.3 th/mm3 (1.8-7.7); Neut % (Auto) 71.4 % (16.0-70.0); Platelet Count 335 th/mm3 (150-450); Red Blood Count 3.07 mil/mm3 (4.50-5.90); Red Cell Distribution Width 13.3 % (11.6-17.2); White Blood Count 13.1 th/mm3 (4.0-11.0)
[2018-02-01 07:59] LABS: Albumin 2.2 g/dL (3.4-5.0); Anion Gap 9 meq/L (5-15); Aspartate Aminotransferase 163 U/L (15-37); Blood Urea Nitrogen 13 mg/dL (7-18); Carbon Dioxide 23.7 meq/L (21.0-32.0); Chloride 110 meq/L (98-107); Glomerular Filtration Rate 82 mL/min (>89); Glucose,Random 135 mg/dL (74-106); Potassium 3.3 meq/L (3.5-5.1); Sodium 143 meq/L (136-145)
[2018-02-01 08:00] LABS: Alanine Aminotransferase 238 U/L (12-78)
[2018-02-01 08:02] LABS: Alkaline Phosphatase 112 U/L (45-117); Total Protein 6.1 g/dL (6.4-8.2)
--- NOTE | 2018-02-01 08:41 | P.PNNPSY ---
- Behavior Intact: Impulsive/agitated - Psychosocial Intact: Psychosocial, Family/other adjustment, Realistic expectation - Progress Notes/Response to Treatment Contents of Sessions: Adjustment, Level of consciousness Time with Patient: 15 minutes Premorbid Psychological Status: Premorbid Cognitive, Emotional and Behavioral Status: Tenuous. The patient has high school years of education and a solid work history prior to this injury. The patient has no prior psychiatric difficulties, as described above. Substance abuse history is unremarkable. Behavioral Reactions of Patient and Family/Support System: Tenuous. The patients family is experiencing ongoing issues of adjustment given the nature of the injury, and this aspect of recovery will require ongoing monitoring. Emotional/Behavioral Status of Patient and Family/Support System: Tenuous. Pertinent issues, if appropriate to this patients clinical care, are described in detail above. Maximizing Acute Care Outcome: It is recommended that the patient be monitored for emergent behavioral impulsivity as the medical condition evolves. This patients neuropathological challenges may limit rehabilitation potential going forward, and these challenges will require specialized therapeutic skills to maximize outcome. Additionally, the patients family is experiencing ongoing issues of adjustment given the traumatic nature of the injury, and they may benefit from ongoing psychological assistance. At this point in the recovery process, the patient does not have cognitive capacity as the patient is unable to understand a situation and its likely consequences, nor is the patient able to manipulate information rationally. Cognitive capacity will be assessed throughout the recovery process. Anticipated Problems: Ongoing areas of concern will include behavioral impulsivity, lack of insight and judgment, which is expected to improve with time and treatment. Treatment Plan: This clinician will continue to follow with you throughout the course of this patients critical care treatment, and I will be available to meet with the patients family/support system to facilitate their understanding and the ongoing care of their family member. The goals of neuropsychological intervention shall be both educational and supportive to the family/support system as is deemed clinically appropriate. Disinhibition Score: 15.75 Aggression Score: 14.00 Lability Score: 14.00 Agitated Behavior Total Score: 15 Impression: 22 year old male s/p possible concussion [facility] on 01/23/2018. Progress Note Narrative: PTD 10. The patient was out of the room during rounds. From report, there remains on agitation/restlessness in this patient with recent ABS of 15 (15.8,14 ,14). It is noted that he may be in hypoactive delirium, which fits his clinical presentation. His LFT are elevated. No other issues. I will follow. - Diagnosis (1) Mild neurocognitive disorder due to traumatic brain injury Status: Acute
[2018-02-01] MEDS: Famotidine PF Inj 20 MG/2 ML Vial IV.PUSH SCH ×2 (09:05→21:08)
[2018-02-01] MEDS: Metoprolol Tartrate 25 MG Tablet PO SCH ×2 (09:06→21:06)
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
[2018-02-01] MEDS: Enoxaparin Inj 30 MG/0.3 ML Syringe SQ SCH (10:53)
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
[2018-02-01] MEDS: QUEtiapine 25 MG Tablet PO SCH (21:08)
--- NOTE | 2018-02-01 23:05 | CT ---
EXAM DATE: 02/01/2018 5:12 PM EDT AGE/SEX: 22 years / Male INDICATIONS: Chest and abdominal pain. CLINICAL DATA: This is the patient's subsequent encounter. Patient reports that signs and symptoms h ave been present for 1 day and indicates a pain score of 6/10. MEDICAL/SURGICAL HISTORY: None. . Aorta surgery. ORAL CONTRAST: No oral contrast ingested. RADIATION DOSE: 20.54 CTDI (mGy) ; Combined studies COMPARISON: [facility] [place], CT ABDOMEN & PELVIS W CONTRAST, 01/22/2018. . TECHNIQUE: Multiple contiguous axial images were obtained through the abdomen and pelvis following b olus infusion of 65 ml Omnipaque 350 (iohexol) nonionic water-soluble contrast as a single exam dos e. No oral contrast ingested. Using automated exposure control and adjustment of the mA and/or kV ac cording to patient size, radiation dose was kept as low as reasonably achievable to obtain optimal di agnostic quality images. DICOM format image data is available electronically for review and comparis on. FINDINGS: Lower Lungs: Persistent 2.8 cm left pleural effusion. Endostent in the descending thoracic aorta. Liver: The liver has a homogeneous density without space-occupying lesion. There is no dilation of th e biliary tree. No calcified gallstones. Spleen: Hypodensity upper posterior spleen at site of one of the lacerations. There is radiopaque hunter rgical packing adjacent to the loop of bowel and anterior splenic laceration site. There is focal flu id adjacent to the inferior margin of the spleen. Pancreas: Unremarkable without mass or calcification. Kidneys: Normal in size and shape. No evidence of mass or hydronephrosis. Adrenal Glands: Unremarkable. Aorta: The aorta and proximal iliac vessels are grossly unremarkable without aneurysmal dilation. Bowel/Mesentery: Interval surgery in the left upper quadrant with anastomosis suture and surgical pa cking material. No dilated loops of small or large bowel. Moderate amount of free fluid in the depend ent pelvis. Abdominal Wall: Intact. Retroperitoneum: No evidence of adenopathy in the retrocrural, para-aortic, or deep pelvic regions. Bladder: Hernandez catheter in the nondistended urinary bladder. Reproductive Organs: No abnormal masses or calcifications seen. Inguinal: The inguinal region is unremarkable without evidence of adenopathy. Bony Structures: Left femoral intramedullary sari.. CONCLUSION: 1. Postsurgical changes in the left upper quadrant adjacent to splenic laceration with, anastomosis, surgical packing, and a small focal fluid collection adjacent to the inferior spleen. 2. Interval development of moderate-sized left pleural effusion. Electronically signed by: Stevenson Villalta MD 02/01/2018 11:04 PM EDT
--- NOTE | 2018-02-01 23:09 | CT ---
EXAM DATE: 02/01/2018 5:12 PM EDT AGE/SEX: 22 years / Male INDICATIONS: Abdominal pain and chest pain. CLINICAL DATA: This is the patient's subsequent encounter. Patient reports that signs and symptoms h ave been present for 1 day and indicates a pain score of 6/10. MEDICAL/SURGICAL HISTORY: None. . Aortic repair. RADIATION DOSE: 20.54 CTDI (mGy) ; Combined studies COMPARISON: [facility] [place], [place] CHEST W CONTRAST, 01/22/2018. . TECHNIQUE: Multiple contiguous axial images were obtained through the chest during bolus infusion of 65 ml Omnipaque 350 (iohexol) nonionic water-soluble contrast as a single exam dose. Images were obtained in suspended respiration using multiple row detector helical technique. Using automated exp osure control and adjustment of the mA and/or kV according to patient size, radiation dose was kept a s low as reasonably achievable to obtain optimal diagnostic quality images. DICOM format image data is available electronically for review and comparison. FINDINGS: Lungs: Patchy infiltrates in the right lower lung similar to prior. There is consolidation in the le ft lower lung adjacent to the pleural effusion. No evidence of pneumothorax. Mediastinum: Interval placement of endostent from the aortic arch to distal descending aorta and sto p no evidence of middle mediastinal adenopathy. Pleurae: Interval development of a moderate size left pleural effusion measuring up to 2.8 cm AP dim ension. Axillae: Unremarkable. Bony Structures: Nondisplaced fracture of the posterior lateral left eighth rib. CONCLUSION: 1. Interval placement of aortic stent. 2. Interval development of moderate-sized left pleural effusion with adjacent segmental consolidatio n/atelectasis of the left lower lung. 3. Nondisplaced fracture lateral left eighth rib. Electronically signed by: Stevenson Villalta MD 02/01/2018 11:08 PM EDT
[2018-02-02] MEDS: Piperacil/Tazo 4.5 GM Premix 4.5 GM/100 ML BAG IV.SIG SCH ×5 (01:15→20:53)
[2018-02-02] MEDS: Enoxaparin Inj 30 MG/0.3 ML Syringe SQ SCH (01:15)
[2018-02-02 05:31] LABS: Baso # (Auto) 0.1 th/mm3 (0.0-0.2); Baso % (Auto) 0.4 % (0.0-2.0); Eos # (Auto) 0.6 th/mm3 (0.0-0.4); Eos % (Auto) 4.2 % (0.0-4.0); Hemoglobin 9.2 gm/dL (13.0-17.0); Lymph # (Auto) 1.9 th/mm3 (1.0-4.8); Lymph % (Auto) 12.4 % (9.0-44.0); Mean Corpuscular HGB Conc 34.1 % (32.0-36.0); Mean Corpuscular Hemoglobin 30.3 pg (27.0-34.0); Mean Platelet Volume 7.9 fL (7.0-11.0); Mono # (Auto) 1.7 th/mm3 (0.0-0.9); Neut # (Auto) 11.2 th/mm3 (1.8-7.7); Platelet Count 364 th/mm3 (150-450); Red Blood Count 3.03 mil/mm3 (4.50-5.90); Red Cell Distribution Width 13.6 % (11.6-17.2); White Blood Count 15.5 th/mm3 (4.0-11.0)
[2018-02-02 07:56] LABS: Eosinophils 4 % (0-4); Lymphocytes 9 % (9-44); Metamyelocytes 1 % (0-1); Monocytes 9 % (0-8); Myelocytes 1 % (0-0); Platelet Estimate Normal (Normal); Platelet Morphology Normal (Normal)
[2018-02-02] MEDS: Famotidine PF Inj 20 MG/2 ML Vial IV.PUSH SCH ×2 (09:08→20:53)
[2018-02-02] MEDS: Metoprolol Tartrate 25 MG Tablet PO SCH ×2 (09:09→20:53)
[2018-02-02 09:55] LABS: Alanine Aminotransferase 252 U/L (12-78); Albumin 2.2 g/dL (3.4-5.0); Anion Gap 10 meq/L (5-15); Aspartate Aminotransferase 114 U/L (15-37); Blood Urea Nitrogen 10 mg/dL (7-18); Calcium 7.8 mg/dL (8.5-10.1); Carbon Dioxide 24.4 meq/L (21.0-32.0); Chloride 109 meq/L (98-107); Glomerular Filtration Rate Greater Than 89 mL/min (>89); Glucose,Random 140 mg/dL (74-106); Potassium 3.4 meq/L (3.5-5.1); Sodium 143 meq/L (136-145)
[2018-02-02 09:58] LABS: Alkaline Phosphatase 114 U/L (45-117); Total Protein 6.3 g/dL (6.4-8.2)
[2018-02-02] MEDS: Acetaminophen 325 MG Tablet PO PRN (11:51)
--- NOTE | 2018-02-02 12:11 | P.PNNPSY ---
- Progress Notes/Response to Treatment Contents of Sessions: Adjustment Time with Patient: 30 minutes Premorbid Psychological Status: Premorbid Cognitive, Emotional and Behavioral Status: Tenuous. The patient has high school years of education and a solid work history prior to this injury. The patient has no prior psychiatric difficulties, as described above. Substance abuse history is unremarkable. Behavioral Reactions of Patient and Family/Support System: Tenuous. The patients family is experiencing ongoing issues of adjustment given the nature of the injury, and this aspect of recovery will require ongoing monitoring. Emotional/Behavioral Status of Patient and Family/Support System: Tenuous. Pertinent issues, if appropriate to this patients clinical care, are described in detail above. Maximizing Acute Care Outcome: It is recommended that the patient be monitored for emergent behavioral impulsivity as the medical condition evolves. This patients neuropathological challenges may limit rehabilitation potential going forward, and these challenges will require specialized therapeutic skills to maximize outcome. Additionally, the patients family is experiencing ongoing issues of adjustment given the traumatic nature of the injury, and they may benefit from ongoing psychological assistance. At this point in the recovery process, the patient does not have cognitive capacity as the patient is unable to understand a situation and its likely consequences, nor is the patient able to manipulate information rationally. Cognitive capacity will be assessed throughout the recovery process. Anticipated Problems: Ongoing areas of concern will include behavioral impulsivity, lack of insight and judgment, which is expected to improve with time and treatment. Treatment Plan: This clinician will continue to follow with you throughout the course of this patients critical care treatment, and I will be available to meet with the patients family/support system to facilitate their understanding and the ongoing care of their family member. The goals of neuropsychological intervention shall be both educational and supportive to the family/support system as is deemed clinically appropriate. Disinhibition Score: 15.75 Aggression Score: 14.00 Lability Score: 14.00 Agitated Behavior Total Score: 15 Impression: 22 year old male s/p possible concussion 2[place] [facility] [place] Progress Note Narrative: PTD 11. The patient is stable, somewhat difficult to motivate. No issues of agitation/restlessness. I will follow. - Diagnosis (1) Mild neurocognitive disorder due to traumatic brain injury Status: Acute
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
[2018-02-02 14:16] LABS: INR 1.1 Ratio; Prothrombin Time 11.6 sec (9.8-11.6)
--- NOTE | 2018-02-02 16:25 | XR ---
EXAM DATE: 02/02/2018 12:00 AM EDT AGE/SEX: 22 years / Male INDICATIONS: Post left thoracentesis. CLINICAL DATA: This is the patient's initial encounter. Patient reports that signs and symptoms have been present for 1 day and indicates a pain score of 0/10. MEDICAL/SURGICAL HISTORY: None. None. COMPARISON: [facility] [place], CT ABDOMEN & PELVIS W CONTRAST, 02/01/2018. . FINDINGS: The heart is normal in size. There is been interval removal of the patient's left pleural effusion. T here is no pneumothorax evident post procedure. The patient's aortic endograft is in stable position. The examination also demonstrates a radiodense foreign body in the left upper quadrant. CONCLUSION: No pneumothorax identified. Partial visualization of a radiodense foreign body in the left upper quadrant. This is of uncertain e tiology but presumably is within the abdominal cavity. Electronically signed by: Walker Alexander MD 02/02/2018 4:24 PM EDT
[2018-02-02] MEDS ORDERED: Glycopyrrolate Inj 1 MG/5 ML Syringe IV.PUSH ONE (18:00)
[2018-02-02] MEDS ORDERED: Succinylcholine Inj 100 MG/5 ML Syringe IV.PUSH ONE (18:00)
[2018-02-02] MEDS ORDERED: Lidocaine PF 1% Inj 5 ML Syringe OTHER ONE (18:00)
[2018-02-02] MEDS ORDERED: Neostigmine Inj 5 MG/5 ML Syringe IV.PUSH ONE (18:00)
[2018-02-02] MEDS ORDERED: Bisacodyl 10 MG Supp RECTAL PRN (19:00)
[2018-02-02] MEDS ORDERED: Naloxone Inj 0.4 MG/ML Vial IV.PUSH PRN (19:00)
[2018-02-02] MEDS ORDERED: Post-op Orders (for Pharmacy) OTHER ONE (19:00)
[2018-02-02] MEDS ORDERED: Morphine Inj 4 MG/ML Vial IV.PUSH PRN (19:03)
[2018-02-02] MEDS ORDERED: fentaNYL Citrate Inj 100 MCG/2 ML Ampul ONE (19:16)
[2018-02-02] MEDS ORDERED: *Meperidine Inj 25 MG/ML Vial PERIprocedural Use ONLY ONE (19:45)
[2018-02-02] MEDS ORDERED: *morphine SULFATE 10 MG/ML PERIprocedure ONLY ONE (19:51)
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
[2018-02-02] MEDS: QUEtiapine 25 MG Tablet PO SCH (20:54)
[2018-02-03] MEDS: Piperacil/Tazo 4.5 GM Premix 4.5 GM/100 ML BAG IV.SIG SCH ×4 (02:00→20:56)
--- NOTE | 2018-02-03 08:38 | P.PNNPSY ---
- Behavior Intact: Impulsive/agitated - Progress Notes/Response to Treatment Contents of Sessions: Adjustment, Level of consciousness Time with Patient: 15 minutes Premorbid Psychological Status: Premorbid Cognitive, Emotional and Behavioral Status: Tenuous. The patient has high school years of education and a solid work history prior to this injury. The patient has no prior psychiatric difficulties, as described above. Substance abuse history is unremarkable. Behavioral Reactions of Patient and Family/Support System: Tenuous. The patients family is experiencing ongoing issues of adjustment given the nature of the injury, and this aspect of recovery will require ongoing monitoring. Emotional/Behavioral Status of Patient and Family/Support System: Tenuous. Pertinent issues, if appropriate to this patients clinical care, are described in detail above. Maximizing Acute Care Outcome: It is recommended that the patient be monitored for emergent behavioral impulsivity as the medical condition evolves. This patients neuropathological challenges may limit rehabilitation potential going forward, and these challenges will require specialized therapeutic skills to maximize outcome. Additionally, the patients family is experiencing ongoing issues of adjustment given the traumatic nature of the injury, and they may benefit from ongoing psychological assistance. At this point in the recovery process, the patient does not have cognitive capacity as the patient is unable to understand a situation and its likely consequences, nor is the patient able to manipulate information rationally. Cognitive capacity will be assessed throughout the recovery process. Anticipated Problems: Ongoing areas of concern will include behavioral impulsivity, lack of insight and judgment, which is expected to improve with time and treatment. Treatment Plan: This clinician will continue to follow with you throughout the course of this patients critical care treatment, and I will be available to meet with the patients family/support system to facilitate their understanding and the ongoing care of their family member. The goals of neuropsychological intervention shall be both educational and supportive to the family/support system as is deemed clinically appropriate. Disinhibition Score: 15.75 Aggression Score: 14.00 Lability Score: 14.00 Agitated Behavior Total Score: 15 Impression: 22 year old male s/p possible concussion [facility] [facility] [place]. Progress Note Narrative: PTD 12. No significant agitation/restlessness, although patient has been difficult to motivate. He remains on Seroquel 50 HS to facilitate normal sleep wake cycle. He has concussion. I will follow. - Diagnosis (1) Mild neurocognitive disorder due to traumatic brain injury Status: Acute
[2018-02-03 10:23] LABS: Baso # (Auto) 0.1 th/mm3 (0.0-0.2); Baso % (Auto) 0.6 % (0.0-2.0); Eos # (Auto) 0.3 th/mm3 (0.0-0.4); Eos % (Auto) 1.3 % (0.0-4.0); Hematocrit 29.2 % (39.0-51.0); Hemoglobin 9.7 gm/dL (13.0-17.0); Lymph # (Auto) 2.3 th/mm3 (1.0-4.8); Lymph % (Auto) 11.5 % (9.0-44.0); Mean Corpuscular HGB Conc 33.3 % (32.0-36.0); Mean Corpuscular Hemoglobin 29.6 pg (27.0-34.0); Mean Corpuscular Volume 88.9 fL (80.0-100.0); Mean Platelet Volume 8.3 fL (7.0-11.0); Mono # (Auto) 1.9 th/mm3 (0.0-0.9); Mono % (Auto) 9.7 % (0.0-8.0); Neut # (Auto) 15.4 th/mm3 (1.8-7.7); Neut % (Auto) 76.9 % (16.0-70.0); Platelet Count 462 th/mm3 (150-450); Red Blood Count 3.28 mil/mm3 (4.50-5.90); Red Cell Distribution Width 13.4 % (11.6-17.2)
[2018-02-03] MEDS: Famotidine PF Inj 20 MG/2 ML Vial IV.PUSH SCH ×2 (10:35→20:56)
[2018-02-03] MEDS: Enoxaparin Inj 30 MG/0.3 ML Syringe SQ SCH (10:36)
[2018-02-03 10:44] LABS: Anion Gap 8 meq/L (5-15); Blood Urea Nitrogen 13 mg/dL (7-18); Calcium 7.9 mg/dL (8.5-10.1); Carbon Dioxide 22.9 meq/L (21.0-32.0); Chloride 110 meq/L (98-107); Glomerular Filtration Rate Greater Than 89 mL/min (>89); Glucose,Random 104 mg/dL (74-106); Potassium 4.2 meq/L (3.5-5.1); Sodium 141 meq/L (136-145)
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
--- NOTE | 2018-02-03 12:36 | US ---
EXAM DATE: 02/02/2018 12:00 AM EDT AGE/SEX: 22 years / Male INDICATIONS: Left pleural effusion. CLINICAL DATA: This is the patient's initial encounter. Patient reports that signs and symptoms have been present for 1 day and indicates a pain score of 0/10. MEDICAL/SURGICAL HISTORY: Hypertension. Open left femur fracture. Left 8th rib fracture. Thorac ic aortic transection. . Intramedullary nail fixation left femur. Resection left colon. Aortic stent placement. COMPARISON: No prior exams available for comparison. FLUID: Total volume of 400 red, blood cc of . fluid was removed. Fluid was sent to lab for ordered studies. . . TECHNIQUE: Ultrasound guidance for thoracentesis. Thoracentesis. The risks, benefits, and alternatives to ultrasound guided thoracentesis were explained to the patien t in lay simple terms, including the risk of bleeding and infection. Written and verbal informed con sent was obtained. Appropriate area for left thoracentesis was marked under ultrasound guidance with the patient in the upright position. Overlying skin was prepped and draped in the usual sterile fashion and with local anesthetic, a dermatotomy was made with an 11 blade scalpel. A 6 [place] thoracentesis catheter was p laced in the pleural space and fluid was removed. Catheter was then removed and a sterile dressing a pplied. There were no immediate complications. The patient tolerated the procedure well and the left the ultrasound suite in stable condition. Chest radiograph is to be obtained. CONCLUSION: 1. Uncomplicated ultrasound-guided thoracentesis. Electronically signed by: Walker Alexander MD 02/03/2018 12:35 PM EDT
[2018-02-03] MEDS: Metoprolol Tartrate 25 MG Tablet PO SCH ×2 (15:32→20:57)
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
[2018-02-03] MEDS: Sod Chloride 0.9% Inj 1,000 ML IV.CONT SCH (20:56)
[2018-02-03] MEDS: QUEtiapine 25 MG Tablet PO SCH (20:57)
[2018-02-04] MEDS: Piperacil/Tazo 4.5 GM Premix 4.5 GM/100 ML BAG IV.SIG SCH ×4 (02:11→20:53)
[2018-02-04] MEDS: Enoxaparin Inj 30 MG/0.3 ML Syringe SQ SCH ×3 (02:19→22:57)
[2018-02-04] MEDS: Sod Chloride 0.9% Inj 1,000 ML IV.CONT SCH ×5 (05:49→22:58)
[2018-02-04 06:54] LABS: Baso # (Auto) 0.1 th/mm3 (0.0-0.2); Baso % (Auto) 0.4 % (0.0-2.0); Eos # (Auto) 0.6 th/mm3 (0.0-0.4); Eos % (Auto) 4.2 % (0.0-4.0); Hematocrit 30.3 % (39.0-51.0); Hemoglobin 10.1 gm/dL (13.0-17.0); Lymph % (Auto) 12.8 % (9.0-44.0); Mean Corpuscular HGB Conc 33.4 % (32.0-36.0); Mean Corpuscular Hemoglobin 29.8 pg (27.0-34.0); Mean Corpuscular Volume 89.3 fL (80.0-100.0); Mean Platelet Volume 7.8 fL (7.0-11.0); Mono # (Auto) 1.4 th/mm3 (0.0-0.9); Mono % (Auto) 9.3 % (0.0-8.0); Neut # (Auto) 11.2 th/mm3 (1.8-7.7); Neut % (Auto) 73.3 % (16.0-70.0); Platelet Count 462 th/mm3 (150-450); Red Blood Count 3.39 mil/mm3 (4.50-5.90); Red Cell Distribution Width 13.4 % (11.6-17.2); White Blood Count 15.3 th/mm3 (4.0-11.0)
[2018-02-04] MEDS: Famotidine PF Inj 20 MG/2 ML Vial IV.PUSH SCH ×2 (08:50→20:53)
[2018-02-04] MEDS: Metoprolol Tartrate 25 MG Tablet PO SCH ×2 (08:50→20:53)
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
[2018-02-04] MEDS: QUEtiapine 25 MG Tablet PO SCH (20:53)
[2018-02-05] MEDS: Piperacil/Tazo 4.5 GM Premix 4.5 GM/100 ML BAG IV.SIG SCH ×4 (02:33→20:15)
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
[2018-02-05] MEDS: Sod Chloride 0.9% Inj 1,000 ML IV.CONT SCH ×2 (08:42→19:37)
[2018-02-05] MEDS: Famotidine PF Inj 20 MG/2 ML Vial IV.PUSH SCH ×2 (08:43→20:16)
[2018-02-05] MEDS: Metoprolol Tartrate 25 MG Tablet PO SCH ×2 (08:44→20:16)
[2018-02-05] MEDS: Enoxaparin Inj 30 MG/0.3 ML Syringe SQ SCH ×2 (11:47→22:25)
[2018-02-05] MEDS: QUEtiapine 25 MG Tablet PO SCH (20:15)
[2018-02-05] MEDS ORDERED: Melatonin 5 MG Tablet PO PRN (21:00)
[2018-02-06] MEDS: Piperacil/Tazo 4.5 GM Premix 4.5 GM/100 ML BAG IV.SIG SCH ×2 (02:35→08:48)
[2018-02-06] MEDS: Sod Chloride 0.9% Inj 1,000 ML IV.CONT SCH (07:20)
[2018-02-06] MEDS: Famotidine PF Inj 20 MG/2 ML Vial IV.PUSH SCH (08:48)
[2018-02-06] MEDS: Metoprolol Tartrate 25 MG Tablet PO SCH (08:49)
[2018-02-06 08:54] VITALS: RESP 20; O2SAT 100
--- NOTE | 2018-02-06 10:11 | XR ---
EXAM DATE: 02/06/2018 12:00 AM EDT AGE/SEX: 22 years / Male INDICATIONS: Post op. Evaluate fracture. CLINICAL DATA: This is the patient's subsequent encounter. Patient reports that signs and symptoms h ave been present for 2 weeks and indicates a pain score of 0/10. MEDICAL/SURGICAL HISTORY: . Hypertension. Open left femur fracture. Left 8th rib fracture. . Thoracic aortic transection. . Intramedullary nail fixation left femur. Resection left colon. Aortic stent placement. COMPARISON: . FINDINGS: Intramedullary sari is seen bridging the femur fracture in anatomic alignment with locking pins proxim al and distal. Several small fragments remain about the fracture site. CONCLUSION: Anatomic alignment as above with intramedullary sari in good position. Electronically signed by: Tacos Alexander MD 02/06/2018 10:10 AM EDT
[2018-02-06] MEDS: Enoxaparin Inj 30 MG/0.3 ML Syringe SQ SCH (11:52)
[2018-02-06 12:02] VITALS: BP 172/79; PULSE 94; TEMP 97.8
--- NOTE | 2018-02-06 12:06 | P.PNNPSY ---
- Behavior Intact: Coping/acceptance, Cooperative with treatment, Impulsive/agitated - Cognitive Intact: Cognitive, Attention/concentration, Confused/orientation, Insight/ awareness, Judgment/problem solving, Memory - Psychosocial Intact: Psychosocial, Family/other adjustment, Realistic expectation - Progress Notes/Response to Treatment Contents of Sessions: Adjustment, Level of consciousness Time with Patient: 15 minutes Premorbid Psychological Status: Premorbid Cognitive, Emotional and Behavioral Status: Tenuous. The patient has high school years of education and a solid work history prior to this injury. The patient has no prior psychiatric difficulties, as described above. Substance abuse history is unremarkable. Behavioral Reactions of Patient and Family/Support System: Tenuous. The patients family is experiencing ongoing issues of adjustment given the nature of the injury, and this aspect of recovery will require ongoing monitoring. Emotional/Behavioral Status of Patient and Family/Support System: Tenuous. Pertinent issues, if appropriate to this patients clinical care, are described in detail above. Maximizing Acute Care Outcome: It is recommended that the patient be monitored for emergent behavioral impulsivity as the medical condition evolves. This patients neuropathological challenges may limit rehabilitation potential going forward, and these challenges will require specialized therapeutic skills to maximize outcome. Additionally, the patients family is experiencing ongoing issues of adjustment given the traumatic nature of the injury, and they may benefit from ongoing psychological assistance. At this point in the recovery process, the patient does not have cognitive capacity as the patient is unable to understand a situation and its likely consequences, nor is the patient able to manipulate information rationally. Cognitive capacity will be assessed throughout the recovery process. Anticipated Problems: Ongoing areas of concern will include behavioral impulsivity, lack of insight and judgment, which is expected to improve with time and treatment. Treatment Plan: This clinician will continue to follow with you throughout the course of this patients critical care treatment, and I will be available to meet with the patients family/support system to facilitate their understanding and the ongoing care of their family member. The goals of neuropsychological intervention shall be both educational and supportive to the family/support system as is deemed clinically appropriate. Disinhibition Score: 15.75 Aggression Score: 14.00 Lability Score: 14.00 Agitated Behavior Total Score: 15 Impression: 22 year old male s/p possible concussion [facility] on 01/23/2018. Progress Note Narrative: PTD 15. The patient is neurobehaviorally improved, and awaits transfer to acute inpatient rehabilitation. No issues of agitation/restlessness. I will follow. - Diagnosis (1) Mild neurocognitive disorder due to traumatic brain injury Status: Acute
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
== END 2018-02-06 15:10 ==
LOC: NEPI 23:12 → NEDA 23:43 → EDBD 23:43 → N03 01-23 00:20 → N06 01-29 14:07
PROVIDERS: ADMIT Surgery Trauma Surgery; ATTEND Surgery Trauma Surgery
PROC: RPANETH (ICD-10-PCS; 2018-01-23 10:32)